=== PATIENT | male | born 1945 | race Caucasian/White ===

== ENCOUNTER → 2018-03-26 | Outpatient (CLI) | payer MEDICARE, OTHER ==
[~2018-03-26] MED LIST: AMOX1TAB15 PO; AMOXICILLIN PO; APIX5TAB PO; ASPI-1197 PO; ATOR10TA69 PO; CLAVULANATE PO; CLOP75TA14 PO; DOXA4TAB3 PO; FENO160T16 PO; LISI40TA4 PO; MAGN500C15 PO; METH8TAB6 PO; METO25TA6 PO; MULTIVITAMIN PO
== END | disposition home or self-care (01) ==
LOC: SHCH 15:52
PROVIDERS: ATTEND Internal Medicine Cardiovascular Disease
DX: I11.9 Hypertensive heart disease without heart failure (principal); I51.7 Cardiomegaly; I70.0 Atherosclerosis of aorta
CPT/HCPCS: 93306

== ENCOUNTER → 2018-03-30 | Outpatient (CLI) | payer MEDICARE, OTHER | END | disposition home or self-care (01) | LOC: RAH 06:33 | PROVIDERS: ATTEND Internal Medicine Cardiovascular Disease | DX: I70.0 Atherosclerosis of aorta (principal); I71.4 Abdominal aortic aneurysm, without rupture | CPT/HCPCS: 76775 ==

== ENCOUNTER 2018-04-03 05:36 | Observation (INO) | payer MEDICARE, OTHER ==
[2018-03-29 15:56] LABS: APPEARANCE,URINE Clear (CLEAR); BILIRUBIN,URINE Negative (NEGATIVE); COLOR,URINE Yellow (YELLOW); GLUCOSE, URINE (UA) Negative (NEGATIVE); KETONES,URINE Negative (NEGATIVE); LEUKOCYTE ESTERASE ,URINE Negative (NEGATIVE); NITRATE,URINE Negative (NEGATIVE); OCCULT BLOOD,URINE Negative (NEGATIVE); PROTEIN,URINE Negative (NEGATIVE)
[2018-03-29 15:57] LABS: BASOPHILS % (AUTO) 1.1 % (0.0-5.0); EOSINOPHILS % (AUTO) 2.8 % (0.0-8.0); HEMATOCRIT 37.3 % (42-54); MEAN CORPUSCULAR HEMOGLOBIN 33.5 pg (27.0-33.0); MEAN CORPUSCULAR VOLUME 98.4 fL (79-99); MONOCYTES % (AUTO) 4.8 % (3.0-13.0); NEUTROPHILS % (AUTO) 70.3 % (40.0-77.0); PLATELET COUNT (AUTO) 206 K/uL (130-400); RED BLOOD CELL COUNT(AUTO) 3.79 MIL/uL (4.50-6.20); RED CELL DISTRIBUTION WIDTH 13.3 % (11.0-15.5)
[2018-03-29 16:05] VITALS: BP 137/53
[2018-03-29 16:06] LABS: CREATININE 1.5 mg/dL (0.5-1.5); POTASSIUM 4.5 mmol/L (3.5-5.1)
[2018-03-29 16:10] LABS: INR 1.05 (0.85-1.15); PARTIAL THROMBOPLASTIN TIME 27.7 SEC (26.3-35.5)
[~2018-04-03] VITALS: Ht 180.3 cm; Wt 91.2 kg
[2018-04-03] VITALS (14 sets, daily range): BP systolic 123–143; BP diastolic 40–68
[~2018-04-03 05:36] MED LIST changes: +ACETAMINOPHEN 325 MG TAB PO PRN; -AMOX1TAB15 PO; -CLOP75TA14 PO; +SODIUM CHLORIDE 0.9% 500ML 500 ML IV SCH
[2018-04-03] MEDS: SODIUM CHLORIDE 0.9% 1000ML 1,000 ML IV SCH ×5 (06:30→22:09)
[2018-04-03] MEDS ORDERED: AMOX1TAB15 PO (07:21)
[2018-04-03] MEDS ORDERED: SODIUM BICARB 50MEQ 50ML VIAL ONE (12:07)
[2018-04-03] MEDS ORDERED: LIDOCAINE HCL 1% 20 ML VIAL ONE (12:07)
[2018-04-03] MEDS ORDERED: ISOVUE-370 50ML VIAL IV ONE ×2 (12:08→12:54)
[2018-04-03] MEDS ORDERED: HEPARIN SODIUM 1000UNIT/ML 10ML VIAL ONE (12:08)
[2018-04-03] MEDS ORDERED: NITROGLYCERIN 5 MG/ML 10 ML VIAL IV ONE (12:08)
[2018-04-03] MEDS ORDERED: IOPAMIDOL-370 100 ML VIAL IV ONE (12:08)
[2018-04-03] MEDS ORDERED: MEPERIDINE-PF 25 MG/ML SYG ONE (12:22)
[2018-04-03] MEDS ORDERED: MIDAZOLAM HCL 1 MG/ML 2ML VIAL ONE (12:22)
[2018-04-03] MEDS ORDERED: CLOPIDOGREL BISULFATE 300 MG TAB ONE (13:18)
[2018-04-03] MEDS ORDERED: NITROGLYCERIN 50 MG/D5% WATER 1 BOT IV PRN (13:30)
[2018-04-03] MEDS ORDERED: METHYLPREDNISOLONE 4 MG TABLET PO PRN (13:30)
[2018-04-03] MEDS ORDERED: ONDANSETRON HCL MDV 20ML 2 MG/ML VIAL IVP PRN (13:30)
[2018-04-03] MEDS ORDERED: ACETAMINOPHEN-CODEINE 300/30MG TAB PO PRN (13:30)
[2018-04-03] MEDS ORDERED: CLOP75TA14 PO (13:33)
[2018-04-03] MEDS ORDERED: FENOFIBRATE NANOCRYSTALLIZED 145 MG TAB PO SCH (21:00)
[2018-04-03] MEDS ORDERED: DOXAZOSIN MESYLATE 2 MG TABLET PO SCH (21:00)
[2018-04-03] MEDS: METOPROLOL TARTRATE 25 MG TAB PO SCH (22:10)
[2018-04-03] MEDS: AMOXICILLIN/POTASSIUM CLAV 500-125 TABLET PO SCH (22:10)
[2018-04-04 03:49] VITALS: BP 139/57
[2018-04-04 05:10] LABS: HEMATOCRIT 35.3 % (42-54); MEAN CORPUSCULAR HEMOGLOBIN 33.8 pg (27.0-33.0); MEAN CORPUSCULAR HGB CONC 34.8 g/dL (32.0-36.0); MEAN CORPUSCULAR VOLUME 97.2 fL (79-99); PLATELET COUNT (AUTO) 207 K/uL (130-400); RED BLOOD CELL COUNT(AUTO) 3.63 MIL/uL (4.50-6.20); RED CELL DISTRIBUTION WIDTH 13.1 % (11.0-15.5); WHITE BLOOD COUNT (AUTO) 10.2 K/uL (4.8-10.8)
[2018-04-04 05:21] LABS: POTASSIUM 4.4 mmol/L (3.5-5.1)
[2018-04-04] MEDS: SODIUM CHLORIDE 0.9% 1000ML 1,000 ML IV SCH ×2 (05:23→05:37)
[2018-04-04 08:00] VITALS: BP 128/60
[2018-04-04] MEDS: AMOXICILLIN/POTASSIUM CLAV 500-125 TABLET PO SCH (08:58)
[2018-04-04] MEDS: METOPROLOL TARTRATE 25 MG TAB PO SCH (08:59)
[2018-04-04] MEDS ORDERED: MULTIVITAMIN TABLET PO SCH (09:00)
[2018-04-04] MEDS ORDERED: ATORVASTATIN CALCIUM 10 MG TABLET PO SCH (09:00)
[2018-04-04] MEDS ORDERED: ASPIRIN 81MG TAB.CHEW PO SCH (09:00)
[2018-04-04] MEDS ORDERED: LISINOPRIL 40 MG TABLET PO SCH (09:00)
[2018-04-04] MEDS ORDERED: CLOPIDOGREL BISULFATE 75 MG TAB PO SCH (09:00)
[2018-04-04] MEDS ORDERED: APIXABAN 5 MG TABLET PO SCH (09:00)
[2018-04-04] MEDS ORDERED: CLOP75TA14 PO (09:54)
[2018-04-04] MEDS ORDERED: MAGNESIUM OXIDE 400 MG TABLET PO SCH (21:00)
== END 2018-04-04 11:30 | disposition home or self-care (01) ==
LOC: DAH 05:36 → 4CH 05:37 → DAH 05:37
PROVIDERS: ADMIT Internal Medicine Cardiovascular Disease; ATTEND Internal Medicine Cardiovascular Disease
DX: I25.119 Atherosclerotic heart disease of native coronary artery with unspecified angina pectoris (principal); I10 Essential (primary) hypertension; E78.5 Hyperlipidemia, unspecified; I48.0 Paroxysmal atrial fibrillation; I49.5 Sick sinus syndrome; M19.90 Unspecified osteoarthritis, unspecified site; F17.210 Nicotine dependence, cigarettes, uncomplicated; Z79.82 Long term (current) use of aspirin; Z79.899 Other long term (current) drug therapy; Z82.49 Family history of ischemic heart disease and other diseases of the circulatory system
CPT/HCPCS: 36415 ×2; 71045; 80048 ×2; 81003; 85025; 85027; 85347 ×2; 85610; 85730; 93005 ×2; 93458; A4606; C1725; C1760; C1769 ×2; C1874 ×2; C1887; C1894; C9600; C9601; G0378 ×30; J1644; J2175; J2250; J3490 ×2; J7030; Q9967 ×3; 92921; 99152; 99153; 99156; 99157

== ENCOUNTER 2018-10-31 06:15 | Observation (INO) | payer MEDICARE, OTHER ==
[~2018-10-31] VITALS: Ht 180.3 cm; Wt 90.3 kg
[~2018-10-31 06:15] MED LIST changes: -ACETAMINOPHEN 325 MG TAB PO PRN; +AMOX1TAB15 PO; -AMOXICILLIN PO; -ASPI-1197 PO; -CLAVULANATE PO; +CLOP75TA14 PO; +DRON400T2 PO; -MULTIVITAMIN PO; -SODIUM CHLORIDE 0.9% 500ML 500 ML IV SCH
[2018-10-31 06:38] LABS: BASOPHILS % (AUTO) 1.3 % (0.0-5.0); HEMATOCRIT 40.3 % (42-54); LYMPHOCYTES % (AUTO) 12.8 % (21.0-51.0); MEAN CORPUSCULAR HEMOGLOBIN 32.6 pg (27.0-33.0); MEAN CORPUSCULAR HGB CONC 33.5 g/dL (32.0-36.0); MEAN CORPUSCULAR VOLUME 97.2 fL (79-99); MONOCYTES % (AUTO) 6.5 % (3.0-13.0); NEUTROPHILS % (AUTO) 77.4 % (40.0-77.0); PLATELET COUNT (AUTO) 181 K/uL (130-400); RED BLOOD CELL COUNT(AUTO) 4.15 MIL/uL (4.50-6.20); RED CELL DISTRIBUTION WIDTH 12.2 % (11.0-15.5); WHITE BLOOD COUNT (AUTO) 8.5 K/uL (4.8-10.8)
[2018-10-31 06:43] LABS: APPEARANCE,URINE CLEAR (CLEAR); BILIRUBIN,URINE NEGATIVE (NEGATIVE); COLOR,URINE YELLOW (YELLOW); GLUCOSE, URINE (UA) NEGATIVE (NEGATIVE); KETONES,URINE 5 mg/dL (NEGATIVE); LEUKOCYTE ESTERASE ,URINE NEGATIVE (NEGATIVE); NITRATE,URINE NEGATIVE (NEGATIVE); OCCULT BLOOD,URINE TRACE-INTACT (NEGATIVE); PH,URINE 5.5 (5.0-8.0); PROTEIN,URINE 30 (NEGATIVE); UROBILINOGEN,URINE 0.2 mg/dL (0.2-1.0)
[2018-10-31 06:45] LABS: CREATININE 1.4 mg/dL (0.5-1.5); POTASSIUM 4.7 mmol/L (3.5-5.1)
[2018-10-31 06:49] LABS: INR 1.03 (0.85-1.15); PROTHROMBIN TIME 10.8 SEC (9.6-11.6)
[2018-10-31 06:57] LABS: ALBUMIN 4.1 g/dL (3.5-5.0); BILIRUBIN,TOTAL 0.5 mg/dL (0.2-1.0)
[2018-10-31] MEDS ORDERED: CLOPIDOGREL BISULFATE 300 MG TAB ONE (07:04)
[2018-10-31 07:25] LABS: BACTERIA,URINE Rare /HPF (None Seen); RBC,URINE 0-1 /HPF (0-1); SQUAMOUS EPITHELIAL CELL,UR Rare /HPF (0-2); WBC,URINE 0-1 /HPF (0-1)
[2018-10-31 10:10] VITALS: BP 170/74
[2018-10-31] MEDS ORDERED: ACETAMINOPHEN 325 MG TAB PO PRN (10:30)
[2018-10-31] MEDS ORDERED: HYDRALAZINE HCL 20 MG/ML VIAL IV PRN (10:30)
[2018-10-31] MEDS ORDERED: MORPHINE SULFATE 2 MG/ML 1ML SYG IV PRN (10:30)
[2018-10-31] MEDS ORDERED: ONDANSETRON HCL 4 MG/2 ML VIAL IV PRN (10:30)
[2018-10-31 13:32] VITALS: BP 149/56
[2018-10-31 14:46] LABS: CREATINE KINASE, TOTAL 58 U/L (21-232); MYOGLOBIN 86 ng/mL (10-92); TROPONIN I < 0.04 ng/mL (0.00-0.06)
[2018-10-31 16:00] VITALS: BP 153/63
[2018-10-31 18:54] LABS: CREATINE KINASE, TOTAL 65 U/L (21-232); MYOGLOBIN 83 ng/mL (10-92); TROPONIN I < 0.04 ng/mL (0.00-0.06)
[2018-10-31 20:00] VITALS: BP 134/56
[2018-10-31] MEDS ORDERED: MAGNESIUM OXIDE 400 MG TABLET PO SCH (21:00)
[2018-10-31] MEDS ORDERED: DOXAZOSIN MESYLATE 2 MG TABLET PO SCH (21:00)
[2018-10-31] MEDS ORDERED: **HM** FENOFIBRATE 160MG PO SCH (21:00)
[2018-10-31] MEDS: FAMOTIDINE/PF 20 MG/2 ML VIAL IV SCH (21:03)
[2018-10-31] MEDS: METOPROLOL TARTRATE 25 MG TAB PO SCH (21:04)
[2018-10-31] MEDS: AMOXICILLIN/POTASSIUM CLAV 500-125 TABLET PO SCH (21:04)
[2018-10-31] MEDS: APIXABAN 5 MG TABLET PO SCH (21:04)
[2018-10-31] MEDS: DRONEDARONE HYDROCHLORIDE 400 MG TABLET PO SCH (21:04)
[2018-10-31 21:25] LABS: CREATINE KINASE, TOTAL 69 U/L (21-232); MYOGLOBIN 86 ng/mL (10-92); TROPONIN I < 0.04 ng/mL (0.00-0.06)
[2018-11-01] VITALS: BP 104/55
[2018-11-01 04:00] VITALS: BP 112/60
[2018-11-01 05:46] LABS: HEMATOCRIT 35.8 % (42-54); MEAN CORPUSCULAR VOLUME 97.2 fL (79-99); PLATELET COUNT (AUTO) 208 K/uL (130-400); RED BLOOD CELL COUNT(AUTO) 3.68 MIL/uL (4.50-6.20); RED CELL DISTRIBUTION WIDTH 12.6 % (11.0-15.5)
[2018-11-01 06:00] LABS: CREATININE 1.5 mg/dL (0.5-1.5); POTASSIUM 4.8 mmol/L (3.5-5.1)
[2018-11-01 08:00] VITALS: BP 125/61
[2018-11-01] MEDS: FAMOTIDINE/PF 20 MG/2 ML VIAL IV SCH (09:00)
[2018-11-01] MEDS: DRONEDARONE HYDROCHLORIDE 400 MG TABLET PO SCH (09:00)
[2018-11-01] MEDS ORDERED: ATORVASTATIN CALCIUM 10 MG TABLET PO SCH (09:00)
[2018-11-01] MEDS ORDERED: CLOPIDOGREL BISULFATE 75 MG TAB PO SCH (09:00)
[2018-11-01] MEDS ORDERED: LISINOPRIL 40 MG TABLET PO SCH (09:00)
[2018-11-01] MEDS: METOPROLOL TARTRATE 25 MG TAB PO SCH (09:00)
[2018-11-01] MEDS: APIXABAN 5 MG TABLET PO SCH (09:00)
[2018-11-01] MEDS: AMOXICILLIN/POTASSIUM CLAV 500-125 TABLET PO SCH (09:00)
[2018-11-01 09:37] LABS: CREATINE KINASE, TOTAL 79 U/L (21-232); MYOGLOBIN 103 ng/mL (10-92); TROPONIN I < 0.04 ng/mL (0.00-0.06)
[2018-11-01] MEDS ORDERED: REGADENOSON 0.4 MG/5 ML PF SYG IVP SCH (11:15)
== END 2018-11-01 19:15 | disposition home or self-care (01) ==
LOC: EEVIPCON 06:15 → EDH 06:15 → EDHIP 08:15 → 3DH 09:21
PROVIDERS: ADMIT Hospitalist; ATTEND Hospitalist
DX: R07.89 Other chest pain (principal); I25.10 Atherosclerotic heart disease of native coronary artery without angina pectoris; I10 Essential (primary) hypertension; I48.0 Paroxysmal atrial fibrillation; I71.4 Abdominal aortic aneurysm, without rupture; E11.9 Type 2 diabetes mellitus without complications; E78.5 Hyperlipidemia, unspecified; J44.9 Chronic obstructive pulmonary disease, unspecified; N40.0 Benign prostatic hyperplasia without lower urinary tract symptoms; Z72.0 Tobacco use; Z79.01 Long term (current) use of anticoagulants; Z80.9 Family history of malignant neoplasm, unspecified; Z82.49 Family history of ischemic heart disease and other diseases of the circulatory system; Z86.79 Personal history of other diseases of the circulatory system; Z95.5 Presence of coronary angioplasty implant and graft
CPT/HCPCS: 36415; 71045; 76775; 78452; 80048; 80053; 81001; 82550; 83874; 84484; 85025; 85027; 85610; 85730; 93005; 93017; 96374; 96375; A9500; G0378; J0360; J2785; J3490

== ENCOUNTER → 2019-01-03 | Outpatient (CLI) | payer MEDICARE, OTHER | END | disposition home or self-care (01) | LOC: SLP 20:10 | PROVIDERS: ATTEND Internal Medicine Cardiovascular Disease | DX: G47.30 Sleep apnea, unspecified (principal) | CPT/HCPCS: 95810 ==

== ENCOUNTER → 2019-01-07 | Outpatient (CLI) | payer MEDICARE, OTHER | END | disposition home or self-care (01) | LOC: SLP 20:12 | PROVIDERS: ATTEND Internal Medicine Cardiovascular Disease | DX: G47.30 Sleep apnea, unspecified (principal) | CPT/HCPCS: 95811 ==

== ENCOUNTER 2019-01-09 09:57 | Emergency (ER) | payer MEDICARE ==
[2019-01-09 10:22] LABS: APPEARANCE,URINE CLEAR (CLEAR); BILIRUBIN,URINE Negative (NEGATIVE); COLOR,URINE Yellow (YELLOW); GLUCOSE, URINE (UA) Negative (NEGATIVE); KETONES,URINE Negative (NEGATIVE); LEUKOCYTE ESTERASE ,URINE Negative (NEGATIVE); NITRATE,URINE Negative (NEGATIVE); OCCULT BLOOD,URINE Negative (NEGATIVE); PROTEIN,URINE Negative (NEGATIVE)
[2019-01-09 10:31] LABS: BASOPHILS % (AUTO) 1.1 % (0.0-5.0); EOSINOPHILS % (AUTO) 1.4 % (0.0-8.0); HEMATOCRIT 36.5 % (42-54); LYMPHOCYTES % (AUTO) 15.1 % (21.0-51.0); MEAN CORPUSCULAR HEMOGLOBIN 33.5 pg (27.0-33.0); MEAN CORPUSCULAR HGB CONC 34.1 g/dL (32.0-36.0); MEAN CORPUSCULAR VOLUME 98.4 fL (79-99); MONOCYTES % (AUTO) 6.7 % (3.0-13.0); NEUTROPHILS % (AUTO) 75.7 % (40.0-77.0); NUCLEATED RED BLOOD CELLS 0.1 % (0.0-0.19); PLATELET COUNT (AUTO) 298 K/uL (130-400); RED BLOOD CELL COUNT(AUTO) 3.71 MIL/uL (4.50-6.20); RED CELL DISTRIBUTION WIDTH 13.5 % (11.0-15.5); WHITE BLOOD COUNT (AUTO) 6.3 K/uL (4.8-10.8)
[2019-01-09 10:42] LABS: INR 1.02 (0.85-1.15); PARTIAL THROMBOPLASTIN TIME 28.3 SEC (26.3-35.5); PROTHROMBIN TIME 10.7 SEC (9.6-11.6)
[2019-01-09 10:47] LABS: CARBON DIOXIDE 23 mmol/L (21-32); CHLORIDE 102 mmol/L (101-111); CREATININE 1.9 mg/dL (0.5-1.5); GLOMERULAR FILTR. RATE CALC 37 mL/min (>60); GLUCOSE,RANDOM 108 mg/dL (70-105); SODIUM SERUM 136 mmol/L (136-145); UREA NITROGEN, BLOOD 34 mg/dL (7-18)
[2019-01-09 10:59] LABS: ALANINE AMINOTRANSFERASE 22 U/L (12-78); ASPARTATE AMINOTRANSFERASE 19 U/L (10-37); BILIRUBIN,TOTAL 0.3 mg/dL (0.2-1.0); CREATINE KINASE, TOTAL 73 U/L (21-232); MYOGLOBIN 88 ng/mL (10-92); TOTAL PROTEIN, SERUM 7.4 g/dL (6.0-8.3); TROPONIN I < 0.04 ng/mL (0.00-0.06)
[2019-01-09] MEDS ORDERED: SODIUM CHLORIDE 0.9% 1000ML 1,000 ML IV ONE (11:09)
[2019-01-09] MEDS ORDERED: KETOROLAC TROMETHAMINE 30MG/ML ONE (11:09)
[2019-01-09] MEDS ORDERED: ONDANSETRON HCL 4 MG/2 ML VIAL ONE (11:09)
== END 2019-01-09 13:33 | disposition home or self-care (01) ==
LOC: EDH 09:57
DX: E86.0 Dehydration (principal); B34.9 Viral infection, unspecified; I10 Essential (primary) hypertension; I25.10 Atherosclerotic heart disease of native coronary artery without angina pectoris; I48.91 Unspecified atrial fibrillation; E78.00 Pure hypercholesterolemia, unspecified; Z85.46 Personal history of malignant neoplasm of prostate; Z90.49 Acquired absence of other specified parts of digestive tract; Z98.890 Other specified postprocedural states; Z87.891 Personal history of nicotine dependence
CPT/HCPCS: 36415; 71045; 80053; 81003; 82550; 83605; 83874; 84484; 85025; 85610; 85730; 87040 ×2; 87804 ×2; 93005; 96361; 96374; 96375; 99284; J1885; J2405; J7030

== ENCOUNTER → 2019-03-12 | Outpatient (CLI) | payer MEDICARE, OTHER | END | disposition home or self-care (01) | LOC: SHCH 07:47 | PROVIDERS: ATTEND Internal Medicine Cardiovascular Disease | DX: I71.4 Abdominal aortic aneurysm, without rupture (principal) | CPT/HCPCS: 93978 ==

== ENCOUNTER 2019-04-11 10:28 | Emergency (ER) | payer MEDICARE, OTHER ==
[2019-04-11 11:08] LABS: EOSINOPHILS % (AUTO) 1.1 % (0.0-8.0); HEMATOCRIT 38.6 % (42-54); LYMPHOCYTES % (AUTO) 11.4 % (21.0-51.0); MEAN CORPUSCULAR HEMOGLOBIN 33.8 pg (27.0-33.0); MEAN CORPUSCULAR HGB CONC 33.7 g/dL (32.0-36.0); MEAN CORPUSCULAR VOLUME 100.1 fL (79-99); MONOCYTES % (AUTO) 6.7 % (3.0-13.0); NEUTROPHILS % (AUTO) 79.8 % (40.0-77.0); PLATELET COUNT (AUTO) 256 K/uL (130-400); RED BLOOD CELL COUNT(AUTO) 3.86 MIL/uL (4.50-6.20); RED CELL DISTRIBUTION WIDTH 13.3 % (11.0-15.5); WHITE BLOOD COUNT (AUTO) 14.2 K/uL (4.8-10.8)
[2019-04-11 11:17] LABS: CREATININE 1.6 mg/dL (0.5-1.5); POTASSIUM 4.4 mmol/L (3.5-5.1)
[2019-04-11] MEDS ORDERED: MORPHINE SULFATE 2 MG/ML 1ML SYG ONE (11:19)
[2019-04-11] MEDS ORDERED: DEXAMETHASONE SOD PHOSPHATE 10MG/ML 1ML VIAL ONE (11:19)
[2019-04-11 11:21] LABS: CRP QUANTITATIVE 5.7 mg/L (0.00-9.0); URIC ACID 6.2 mg/dL (2.6-7.2)
[2019-04-11 11:22] LABS: ALBUMIN 3.9 g/dL (3.5-5.0); BILIRUBIN,TOTAL 0.3 mg/dL (0.2-1.0)
[2019-04-11] MEDS ORDERED: LIDOCAINE HCL 2% 20ML ONE (12:03)
[2019-04-11 12:08] LABS: ERYTHROCYTE SEDIMENTATION RATE 14 MM/HR (0-20)
[2019-04-11 15:40] LABS: APPEARANCE BODY FLUID CLOUDY (CLEAR); SPECIMENTYPE,BODY FLUID SYNOVIAL
[2019-04-11 15:41] LABS: BODY FLUID WBC 4847 /cu. mm.; COLOR,BODY FLUID ORANGE (LT YELLOW); TOTAL VOLUME,BODY FLUID 26 mL
[2019-04-11 15:42] LABS: BODY FLUID RBC 11056 /cu. mm.
[2019-04-11 16:36] LABS: BF LYMPHOCYTE 1 %
[2019-04-11 16:55] LABS: CRYSTALS, SYNOVIAL FLUID SEE SEPARATE REPORT
== END 2019-04-11 17:42 | disposition home or self-care (01) ==
LOC: EDH 10:28
DX: M25.462 Effusion, left knee (principal); I48.91 Unspecified atrial fibrillation; E78.00 Pure hypercholesterolemia, unspecified; I10 Essential (primary) hypertension; Z88.2 Allergy status to sulfonamides; Z90.49 Acquired absence of other specified parts of digestive tract; Z87.891 Personal history of nicotine dependence; Z79.01 Long term (current) use of anticoagulants; Z79.899 Other long term (current) drug therapy
CPT/HCPCS: 20610; 36415; 73562; 80053; 84550; 85025; 85651; 86140; 87071; 87205; 89051; 89060; 96374; 96375; 99285; J1100; J3490

== ENCOUNTER 2019-04-13 08:19 | Emergency (ER) | payer MEDICARE, OTHER ==
[2019-04-13] MEDS ORDERED: MORPHINE SULFATE 5 MG/ML VIAL ONE (08:49)
[2019-04-13] MEDS ORDERED: ACETAMINOPHEN 325 MG TAB ONE (08:49)
[2019-04-13] MEDS ORDERED: PREDNISONE 20 MG TABLET ONE (08:59)
[2019-04-13] MEDS ORDERED: LIDOCAINE HCL 1% 20 ML VIAL ONE (09:23)
[2019-04-13] MEDS ORDERED: L.E.T. GEL 4%/0.5%/0.18% 3ML 3 ML/SYR SYG TP ONE (09:23)
== END 2019-04-13 11:47 | disposition home or self-care (01) ==
LOC: EDH 08:19
DX: M25.462 Effusion, left knee (principal); M10.9 Gout, unspecified; E78.00 Pure hypercholesterolemia, unspecified; I10 Essential (primary) hypertension; I48.91 Unspecified atrial fibrillation; Z88.2 Allergy status to sulfonamides; Z90.49 Acquired absence of other specified parts of digestive tract; Z85.46 Personal history of malignant neoplasm of prostate; Z98.890 Other specified postprocedural states
CPT/HCPCS: 20610; 73562; 96372; 99284; J2270

== ENCOUNTER 2019-04-29 10:38 | Emergency (ER) | payer MEDICARE ==
[2019-04-29] MEDS ORDERED: METHYLPREDNISOLONE SOD SUCC 125MG/2ML VIAL ONE (11:08)
[2019-04-29] MEDS ORDERED: ACETAMINOPHEN EXTRA STRENGTH 500 MG TABLET ONE (11:08)
== END 2019-04-29 12:57 | disposition home or self-care (01) ==
LOC: EDH 10:38
DX: M10.061 Idiopathic gout, right knee (principal); M10.071 Idiopathic gout, right ankle and foot; I25.10 Atherosclerotic heart disease of native coronary artery without angina pectoris; I10 Essential (primary) hypertension; E78.5 Hyperlipidemia, unspecified; I48.91 Unspecified atrial fibrillation; Z72.0 Tobacco use
CPT/HCPCS: 96372; 99283; J2930

== ENCOUNTER → 2019-07-08 | Outpatient (CLI) | payer MEDICARE | END | disposition home or self-care (01) | LOC: LAB 13:29 | PROVIDERS: ATTEND Internal Medicine Gastroenterology | DX: R19.7 Diarrhea, unspecified (principal) | CPT/HCPCS: 87507 ==

== ENCOUNTER 2019-09-16 09:19 | Emergency (ER) | payer MEDICARE, OTHER ==
[2019-09-16 09:58] LABS: BASOPHILS % (AUTO) 0.9 % (0.0-5.0); EOSINOPHILS % (AUTO) 1.1 % (0.0-8.0); HEMATOCRIT 41.1 % (42-54); LYMPHOCYTES % (AUTO) 12.1 % (21.0-51.0); MEAN CORPUSCULAR HEMOGLOBIN 34.5 pg (27.0-33.0); MEAN CORPUSCULAR VOLUME 101.4 fL (79-99); MONOCYTES % (AUTO) 5.5 % (3.0-13.0); NEUTROPHILS % (AUTO) 80.4 % (40.0-77.0); PLATELET COUNT (AUTO) 203 K/uL (130-400); RED BLOOD CELL COUNT(AUTO) 4.05 MIL/uL (4.50-6.20); RED CELL DISTRIBUTION WIDTH 13.6 % (11.0-15.5); WHITE BLOOD COUNT (AUTO) 10.2 K/uL (4.8-10.8)
[2019-09-16 10:02] LABS: APPEARANCE,URINE Clear (CLEAR); BILIRUBIN,URINE Negative (NEGATIVE); COLOR,URINE Yellow (YELLOW); GLUCOSE, URINE (UA) Negative (NEGATIVE); KETONES,URINE Negative (NEGATIVE); LEUKOCYTE ESTERASE ,URINE Negative (NEGATIVE); NITRATE,URINE Negative (NEGATIVE); OCCULT BLOOD,URINE Negative (NEGATIVE); PROTEIN,URINE Negative (NEGATIVE); UROBILINOGEN,URINE 0.2 mg/dL (0.2-1.0)
[2019-09-16 10:06] LABS: CREATININE 1.3 mg/dL (0.5-1.5); POTASSIUM 4.6 mmol/L (3.5-5.1)
[2019-09-16 10:12] LABS: BILIRUBIN,TOTAL 0.3 mg/dL (0.2-1.0); TOTAL PROTEIN, SERUM 7.5 g/dL (6.0-8.3)
[2019-09-16 10:18] LABS: INR 1.02 (0.85-1.15); PARTIAL THROMBOPLASTIN TIME 28.2 SEC (26.3-35.5); PROTHROMBIN TIME 10.7 SEC (9.6-11.6)
== END 2019-09-16 11:24 | disposition home or self-care (01) ==
LOC: EDH 09:19
DX: S39.011A Strain of muscle, fascia and tendon of abdomen, initial encounter (principal); R31.9 Hematuria, unspecified; I48.91 Unspecified atrial fibrillation; I25.10 Atherosclerotic heart disease of native coronary artery without angina pectoris; E78.00 Pure hypercholesterolemia, unspecified; I10 Essential (primary) hypertension; Z72.0 Tobacco use; Z88.2 Allergy status to sulfonamides; Z85.46 Personal history of malignant neoplasm of prostate; X58.XXXA Exposure to other specified factors, initial encounter; Y93.89 Activity, other specified; Y92.89 Other specified places as the place of occurrence of the external cause; Y99.8 Other external cause status
CPT/HCPCS: 36415; 74176; 80053; 81003; 85025; 85610; 85730; 87088

== ENCOUNTER → 2020-04-30 | Outpatient (CLI) | payer MEDICARE | END | disposition home or self-care (01) | LOC: SHCH 09:11 | PROVIDERS: ATTEND Internal Medicine Cardiovascular Disease | DX: I71.4 Abdominal aortic aneurysm, without rupture (principal); R09.89 Other specified symptoms and signs involving the circulatory and respiratory systems; I25.10 Atherosclerotic heart disease of native coronary artery without angina pectoris; I10 Essential (primary) hypertension | CPT/HCPCS: 93306; 93356; 93880; 93978 ==

== ENCOUNTER → 2020-05-28 | Outpatient (CLI) | payer MEDICARE ==
[~2020-05-28] MED LIST changes: +IOHEXOL 350 MG/ML 100ML INFUS..BTL IV ONE
== END ==
LOC: RAH 08:56
PROVIDERS: ATTEND Urology
DX: I25.10 Atherosclerotic heart disease of native coronary artery without angina pectoris (principal); R31.0 Gross hematuria; K57.30 Diverticulosis of large intestine without perforation or abscess without bleeding
CPT/HCPCS: 74178; Q9967

== ENCOUNTER 2021-01-17 09:12 | Emergency (ER) | payer MEDICARE ==
[~2021-01-17 09:12] MED LIST changes: -IOHEXOL 350 MG/ML 100ML INFUS..BTL IV ONE; -LISI40TA4 PO; +LISI40TA9 PO
[2021-01-17 10:13] LABS: BASOPHILS % (AUTO) 0.6 % (0.0-5.0); HEMATOCRIT 36.8 % (42-54); LYMPHOCYTES % (AUTO) 10.9 % (21.0-51.0); MEAN CORPUSCULAR HEMOGLOBIN 33.4 pg (27.0-33.0); MEAN CORPUSCULAR HGB CONC 33.2 g/dL (32.0-36.0); MEAN CORPUSCULAR VOLUME 100.8 fL (79-99); MONOCYTES % (AUTO) 5.8 % (3.0-13.0); NEUTROPHILS % (AUTO) 81.2 % (40.0-77.0); PLATELET COUNT (AUTO) 242 K/uL (130-400); RED BLOOD CELL COUNT(AUTO) 3.65 MIL/uL (4.50-6.20); RED CELL DISTRIBUTION WIDTH 12.9 % (11.0-15.5); WHITE BLOOD COUNT (AUTO) 11.1 K/uL (4.8-10.8)
[2021-01-17] MEDS ORDERED: IOHEXOL 350 MG/ML 100ML INFUS..BTL IV ONE (10:15)
[2021-01-17] MEDS ORDERED: KETOROLAC TROMETHAMINE 30MG/ML ONE (10:16)
[2021-01-17] MEDS ORDERED: LORAZEPAM 2 MG/ML 1 ML VIAL ONE (10:16)
[2021-01-17] MEDS ORDERED: DEXAMETHASONE SOD PHOSPHATE 10MG/ML 1ML VIAL ONE (10:16)
[2021-01-17] MEDS ORDERED: HYDROMORPHONE 1 MG/1 ML AMP ONE (10:17)
[2021-01-17 10:30] LABS: APPEARANCE,URINE Clear (CLEAR); BILIRUBIN,URINE Negative (NEGATIVE); COLOR,URINE Yellow (YELLOW); GLUCOSE, URINE (UA) Negative (NEGATIVE); KETONES,URINE Negative (NEGATIVE); LEUKOCYTE ESTERASE ,URINE Negative (NEGATIVE); NITRATE,URINE Negative (NEGATIVE); OCCULT BLOOD,URINE Negative (NEGATIVE); PROTEIN,URINE Negative (NEGATIVE)
[2021-01-17 10:33] LABS: ALBUMIN 3.6 g/dL (3.5-5.0); BILIRUBIN,TOTAL 0.4 mg/dL (0.2-1.0); CREATININE 1.4 mg/dL (0.5-1.5); POTASSIUM 4.5 mmol/L (3.5-5.1)
== END 2021-01-17 15:28 | disposition home or self-care (01) ==
LOC: EDH 09:12
DX: S39.012A Strain of muscle, fascia and tendon of lower back, initial encounter (principal); K40.90 Unilateral inguinal hernia, without obstruction or gangrene, not specified as recurrent; S39.011A Strain of muscle, fascia and tendon of abdomen, initial encounter; S39.013A Strain of muscle, fascia and tendon of pelvis, initial encounter; I48.91 Unspecified atrial fibrillation; I20.0 Unstable angina; E78.00 Pure hypercholesterolemia, unspecified; I10 Essential (primary) hypertension; Z72.0 Tobacco use; Z88.2 Allergy status to sulfonamides; X58.XXXA Exposure to other specified factors, initial encounter; Y93.89 Activity, other specified; Y92.89 Other specified places as the place of occurrence of the external cause; Y99.8 Other external cause status
CPT/HCPCS: 36415; 74177; 80053; 81003; 85025; 96372; 96374; 96375; 99285; J1100; J1170; J1885; J2060; Q9967

== ENCOUNTER → 2021-06-29 | Outpatient (CLI) | payer MEDICARE ==
[~2021-06-29] MED LIST changes: -DRON400T2 PO; +DRON400T7 PO
== END | disposition home or self-care (01) ==
LOC: SHCH 07:38
PROVIDERS: ATTEND Internal Medicine Cardiovascular Disease
DX: I71.4 Abdominal aortic aneurysm, without rupture (principal); I65.23 Occlusion and stenosis of bilateral carotid arteries; R09.89 Other specified symptoms and signs involving the circulatory and respiratory systems
CPT/HCPCS: 93880; 93978

== ENCOUNTER → 2023-06-27 | Outpatient (CLI) | payer OTHER, MEDICARE ==
[~2023-06-27] MED LIST changes: +CLOP-31 PO; -CLOP75TA14 PO; -MAGN500C15 PO; +MAGN500C4 PO
== END | disposition home or self-care (01) ==
LOC: SHCH 07:35
PROVIDERS: ATTEND Internal Medicine Cardiovascular Disease
DX: I71.40 Abdominal aortic aneurysm, without rupture, unspecified (principal); I10 Essential (primary) hypertension
CPT/HCPCS: 93978

== ENCOUNTER → 2023-08-08 | Outpatient (CLI) | payer OTHER, MEDICARE | END | disposition home or self-care (01) | LOC: SHCH 08:19 | PROVIDERS: ATTEND Internal Medicine Cardiovascular Disease | DX: I35.0 Nonrheumatic aortic (valve) stenosis (principal); I25.10 Atherosclerotic heart disease of native coronary artery without angina pectoris; I11.9 Hypertensive heart disease without heart failure; E78.5 Hyperlipidemia, unspecified | CPT/HCPCS: 93306 ==

== ENCOUNTER → 2023-11-21 | Outpatient (CLI) | payer OTHER, MEDICARE ==
[~2023-11-21] MED LIST changes: +ALLO100T PO; +AMIO200T68 PO; -AMOX1TAB15 PO; -ATOR10TA69 PO; -DRON400T7 PO; +FOLI0.8T22 PO; +LISI10TA24 PO; -LISI40TA9 PO; -MAGN500C4 PO; -METH8TAB6 PO; +METO-408 PO; -METO25TA6 PO; +MIRA25TA PO; +NITR0.4T50 SL; +REGADENOSON 0.4 MG/5 ML PF SYG IVP ONE; +ROSU10TA28 PO; +TAMS-1 PO
== END | disposition home or self-care (01) ==
LOC: SHCH 08:23
PROVIDERS: ATTEND Internal Medicine Cardiovascular Disease
DX: I10 Essential (primary) hypertension (principal); I48.0 Paroxysmal atrial fibrillation; I48.92 Unspecified atrial flutter
CPT/HCPCS: 78452; 96374; 93017; J2785; A9500 ×2

== ENCOUNTER 2023-11-29 05:33 | Day surgery (SDC) | payer OTHER, MEDICARE ==
[2023-11-27 11:36] VITALS: BP 113/50; PULSE 65; RESP 18
[2023-11-27 11:45] LABS: BASOPHILS # (AUTO) 0.06 K/uL (0.00-0.20); BASOPHILS % (AUTO) 0.6 % (0.0-5.0); EOSINOPHILS # (AUTO) 0.16 K/uL (0.00-0.70); EOSINOPHILS % (AUTO) 1.7 % (0.0-8.0); HEMATOCRIT 37.7 % (42-54); IMMATURE GRANULOCYTE ABSOLUTE 0.05 K/uL (0-1); LYMPHOCYTES # (AUTO) 1.4 K/uL (1.0-4.8); MEAN CORPUSCULAR HEMOGLOBIN 33.3 pg (27.0-33.0); MEAN CORPUSCULAR HGB CONC 32.4 g/dL (32.0-36.0); MONOCYTES # (AUTO) 0.8 K/uL (0.1-1.0); MONOCYTES % (AUTO) 8.6 % (3.0-13.0); NEUTROPHILS % (AUTO) 73.6 % (40.0-77.0); PLATELET COUNT (AUTO) 233 K/uL (130-400); RED BLOOD CELL COUNT(AUTO) 3.66 MIL/uL (4.50-6.20); RED CELL DISTRIBUTION WIDTH 14.2 % (11.0-15.5); WHITE BLOOD COUNT (AUTO) 9.5 K/uL (4.8-10.8)
[2023-11-27 11:55] LABS: PROTHROMBIN TIME 11.6 SEC (9.6-11.6)
[2023-11-27 11:56] LABS: PARTIAL THROMBOPLASTIN TIME 30.6 SEC (26.3-35.5)
[2023-11-27 11:57] LABS: POTASSIUM 5.5 mmol/L (3.5-5.1)
[2023-11-29] VITALS (9 sets, daily range): BP systolic 103–120; BP diastolic 40–55; PULSE 54–65; RESP 14–16
[~2023-11-29] VITALS: Ht 177.8 cm; Wt 84.1 kg
[~2023-11-29 05:33] MED LIST changes: +ACET-3540 PO; -CLOP-31 PO; +CLOP75TA32 PO; -DOXA4TAB3 PO; +GABA-529 PO; -REGADENOSON 0.4 MG/5 ML PF SYG IVP ONE; +SULF1TAB42 PO; -TAMS-1 PO
[2023-11-29] MEDS ORDERED: 0.9%NACL 1000ML 1,000 ML IV ONE (06:21)
[2023-11-29 07:05] LABS: CREATININE 2.1 mg/dL (0.5-1.5); POTASSIUM 5.2 mmol/L (3.5-5.1)
[2023-11-29] MEDS ORDERED: LIDOCAINE HCL 400MG/20ML VIAL ONE (07:47)
[2023-11-29] MEDS ORDERED: MEPERIDINE-PF 25 MG/ML SYG ONE ×2 (07:48→08:10)
[2023-11-29] MEDS ORDERED: MIDAZOLAM HCL 1 MG/ML 2ML VIAL ONE ×2 (07:48→08:11)
[2023-11-29] MEDS ORDERED: HEPARIN 10,000 UNIT/10ML (1,000 UNIT/ML) VIAL ONE (07:49)
== END 2023-11-29 12:40 | disposition home or self-care (01) ==
LOC: DAH 05:33
PROVIDERS: ATTEND Internal Medicine Cardiovascular Disease
DX: I48.3 Typical atrial flutter (principal); I48.0 Paroxysmal atrial fibrillation; I49.1 Atrial premature depolarization; E11.22 Type 2 diabetes mellitus with diabetic chronic kidney disease; I12.9 Hypertensive chronic kidney disease with stage 1 through stage 4 chronic kidney disease, or unspecified chronic kidney disease; N18.30 Chronic kidney disease, stage 3 unspecified; E78.5 Hyperlipidemia, unspecified; I25.2 Old myocardial infarction; J45.909 Unspecified asthma, uncomplicated; M19.90 Unspecified osteoarthritis, unspecified site; M10.9 Gout, unspecified; F17.200 Nicotine dependence, unspecified, uncomplicated; G47.33 Obstructive sleep apnea (adult) (pediatric); Z79.01 Long term (current) use of anticoagulants; Z79.899 Other long term (current) drug therapy; Z98.84 Bariatric surgery status; Z95.5 Presence of coronary angioplasty implant and graft; Z90.49 Acquired absence of other specified parts of digestive tract; Z98.890 Other specified postprocedural states; Z82.49 Family history of ischemic heart disease and other diseases of the circulatory system; Z80.9 Family history of malignant neoplasm, unspecified
CPT/HCPCS: 80048 ×2; 85025; 85610; 85730; 36415 ×2; 93005 ×2; 93653; C1894 ×2; A4649 ×2; C1732; C1730; J3490; J7030; J1644 ×2; J2250 ×2; J2175 ×2; A4215; A4222; A4221; A4663; A4606; A4223 ×3; A4216; 99156; 99157

== ENCOUNTER 2024-02-08 09:20 | Emergency (ER) | payer OTHER, MEDICARE ==
[~2024-02-08] VITALS: Ht 177.8 cm; Wt 82.6 kg
[~2024-02-08 09:20] MED LIST changes: -AMIO200T68 PO
[2024-02-08] MEDS: 0.9%NACL 1000ML 1,000 ML IV ONE (10:04)
[2024-02-08 10:22] LABS: BASOPHILS # (AUTO) 0.08 K/uL (0.00-0.20); BASOPHILS % (AUTO) 0.8 % (0.0-5.0); EOSINOPHILS # (AUTO) 0.12 K/uL (0.00-0.70); EOSINOPHILS % (AUTO) 1.2 % (0.0-8.0); HEMATOCRIT 35.1 % (42-54); IMMATURE GRANULOCYTE ABSOLUTE 0.05 K/uL (0-1); LYMPHOCYTES # (AUTO) 1.2 K/uL (1.0-4.8); LYMPHOCYTES % (AUTO) 11.4 % (21.0-51.0); MEAN CORPUSCULAR HEMOGLOBIN 33.2 pg (27.0-33.0); MEAN CORPUSCULAR HGB CONC 32.8 g/dL (32.0-36.0); MEAN CORPUSCULAR VOLUME 101.4 fL (79-99); MONOCYTES # (AUTO) 0.5 K/uL (0.1-1.0); MONOCYTES % (AUTO) 4.9 % (3.0-13.0); NEUTROPHILS # (AUTO) 8.3 K/uL (1.8-7.7); NEUTROPHILS % (AUTO) 81.2 % (40.0-77.0); PLATELET COUNT (AUTO) 215 K/uL (130-400); RED BLOOD CELL COUNT(AUTO) 3.46 MIL/uL (4.50-6.20); RED CELL DISTRIBUTION WIDTH 13.7 % (11.0-15.5); WHITE BLOOD COUNT (AUTO) 10.2 K/uL (4.8-10.8)
[2024-02-08] MEDS: MECLIZINE HCL 25 MG TABLET PO ONE (10:24)
[2024-02-08] MEDS: ONDANSETRON 4MG INJ IVP ONE (10:24)
[2024-02-08 10:27] LABS: CREATININE 1.4 mg/dL (0.5-1.3); POTASSIUM 4.5 mmol/L (3.5-5.1)
[2024-02-08 10:32] LABS: ALBUMIN 3.4 g/dL (3.5-5.0); BILIRUBIN,TOTAL 0.3 mg/dL (0.2-1.0); TOTAL PROTEIN, SERUM 7.4 g/dL (6.0-8.3)
[2024-02-08 10:37] LABS: APPEARANCE,URINE CLEAR (CLEAR); BILIRUBIN,URINE NEGATIVE (NEGATIVE); COLOR,URINE LIGHT-YELLOW (YELLOW); GLUCOSE, URINE (UA) NEGATIVE (NEGATIVE); KETONES,URINE NEGATIVE (NEGATIVE); LEUKOCYTE ESTERASE ,URINE NEGATIVE Leu/uL (NEGATIVE); NITRATE,URINE NEGATIVE (NEGATIVE); OCCULT BLOOD,URINE NEGATIVE (NEGATIVE); PH,URINE 5.5 (5.0-8.0); PROTEIN,URINE NEGATIVE (NEGATIVE); UROBILINOGEN,URINE 0.2 mg/dL (0.2-1.0)
[2024-02-08 10:41] LABS: ADD UA MICROSCOPIC NO
[2024-02-08 11:48] VITALS: BP 160/61; PULSE 65; RESP 18; O2SAT 96
[2024-02-08] MEDS ORDERED: MECL-226 PO (12:08)
== END 2024-02-08 12:56 | disposition home or self-care (01) ==
LOC: EDH 09:20
DX: R42 Dizziness and giddiness (principal); I10 Essential (primary) hypertension; E78.00 Pure hypercholesterolemia, unspecified; I48.91 Unspecified atrial fibrillation; M19.90 Unspecified osteoarthritis, unspecified site; F17.200 Nicotine dependence, unspecified, uncomplicated; Z79.01 Long term (current) use of anticoagulants; Z79.02 Long term (current) use of antithrombotics/antiplatelets; Z79.899 Other long term (current) drug therapy; Z90.49 Acquired absence of other specified parts of digestive tract; Z95.5 Presence of coronary angioplasty implant and graft
CPT/HCPCS: 99284; 96374; 92522; 70450; 92610; 71045; 96361; 80053; 85025; 82948; 81003; 36415; 93005; J7030; J2405

== ENCOUNTER → 2024-04-23 | Outpatient (CLI) | payer OTHER ==
[~2024-04-23] MED LIST changes: +MECL-226 PO; -ROSU10TA28 PO; +ROSU10TA72 PO
== END | disposition home or self-care (01) ==
LOC: RAH 11:23
PROVIDERS: ATTEND Chiropractor
DX: I35.8 Other nonrheumatic aortic valve disorders (principal); I51.89 Other ill-defined heart diseases; I51.7 Cardiomegaly; I25.10 Atherosclerotic heart disease of native coronary artery without angina pectoris
CPT/HCPCS: 93306

== ENCOUNTER → 2024-08-27 | Outpatient (CLI) | payer OTHER, MEDICARE | END | disposition home or self-care (01) | LOC: SHCH 07:37 | PROVIDERS: ATTEND Internal Medicine Cardiovascular Disease | DX: I65.23 Occlusion and stenosis of bilateral carotid arteries (principal); I71.40 Abdominal aortic aneurysm, without rupture, unspecified | CPT/HCPCS: 93880; 93978 ==

== ENCOUNTER 2024-10-01 08:27 | Day surgery (SDC) | payer OTHER, MEDICARE ==
[2024-09-27 11:15] LABS: BASOPHILS # (AUTO) 0.08 K/uL (0.00-0.20); BASOPHILS % (AUTO) 0.8 % (0.0-5.0); EOSINOPHILS # (AUTO) 0.16 K/uL (0.00-0.70); EOSINOPHILS % (AUTO) 1.5 % (0.0-8.0); HEMATOCRIT 38.7 % (42-54); IMMATURE GRANULOCYTE ABSOLUTE 0.07 K/uL (0-1); LYMPHOCYTES # (AUTO) 1.3 K/uL (1.0-4.8); LYMPHOCYTES % (AUTO) 12.4 % (21.0-51.0); MEAN CORPUSCULAR HEMOGLOBIN 34.6 pg (27.0-33.0); MEAN CORPUSCULAR HGB CONC 32.6 g/dL (32.0-36.0); MEAN CORPUSCULAR VOLUME 106.3 fL (79-99); MONOCYTES # (AUTO) 0.8 K/uL (0.1-1.0); MONOCYTES % (AUTO) 7.6 % (3.0-13.0); PLATELET COUNT (AUTO) 236 K/uL (130-400); RED BLOOD CELL COUNT(AUTO) 3.64 MIL/uL (4.50-6.20); RED CELL DISTRIBUTION WIDTH 13.2 % (11.0-15.5); WHITE BLOOD COUNT (AUTO) 10.4 K/uL (4.8-10.8)
[2024-09-27 11:19] LABS: CREATININE 1.8 mg/dL (0.5-1.3); POTASSIUM 4.8 mmol/L (3.5-5.1)
[2024-09-27 11:33] LABS: INR 1.11 (0.85-1.15); PROTHROMBIN TIME 11.9 SEC (9.6-11.6)
[2024-09-27 11:34] LABS: PARTIAL THROMBOPLASTIN TIME 28.5 SEC (26.3-35.5)
[2024-09-27 11:36] VITALS: BP 154/56; PULSE 49; RESP 18; TEMP 97.9
--- NOTE | 2024-09-27 18:58 | EKG ---
[facility] Test Date: 2024-09-27 Test Time: 11:42:52 Pat Name: VALENTINO EASTON Department: [facility] Room: Gender: M Senior Policy Analyst: [id number] : 1945 Requested By: DIANA HUFFMAN Order Number: [id number] Reading MD: Librado Hull Measurements Intervals [place] Rate: 52 P: 94 MD: 229 QRS: 14 QRSD: 106 T: 48 QT: 496 QTc: 461 Interpretive Statements Sinus rhythm Prolonged MD interval Compared to ECG 02/08/2024 09:39:50 First degree AV block now present Electronically Signed On 09-27-2024 19:10:58 PROGRESS MAN by Librado Hull Please click the below link to view image of tracing.
[~2024-10-01] VITALS: Ht 180.3 cm; Wt 87.6 kg
[2024-10-01] VITALS (15 sets, daily range): BP systolic 116–184; BP diastolic 56–77; PULSE 53–59; RESP 12–18; TEMP 97.1–98
[~2024-10-01 08:27] MED LIST changes: +ACET-2743 PO; +AMIO200T68 PO; +LEVO75CA5 PO; -LISI10TA24 PO; -METO-408 PO; +OLME20TA68 PO; -SULF1TAB42 PO; +TAMS-1 PO
[2024-10-01] MEDS: 0.9%NACL 1000ML 1,000 ML IV ONE (10:11)
[2024-10-01] MEDS ORDERED: LIDOCAINE HCL 400MG/20ML VIAL ONE (12:39)
[2024-10-01] MEDS ORDERED: HEParin 10,000 UNIT/10ML (1,000 UNIT/ML) VIAL ONE (12:40)
[2024-10-01] MEDS ORDERED: proPOFol 10 MG/ML 20ML VIAL IV ONE (13:06)
[2024-10-01] MEDS ORDERED: MIDAZOLAM HCL 1 MG/ML 2ML VIAL ONE (13:06)
[2024-10-01] MEDS ORDERED: ondanSETRON 4MG INJ ONE (13:06)
[2024-10-01] MEDS ORDERED: rocuRONium bROMide 10MG/1ML 5ML VL ONE ×2 (13:07→15:10)
[2024-10-01] MEDS ORDERED: LIDOCAINE PF 100MG/5ML (2%) SYRINGE 5ML ONE (13:07)
[2024-10-01] MEDS ORDERED: FENTanyl CITRate PF 50 MCG/1 ML 5ML AMP IV ONE (13:07)
[2024-10-01] MEDS ORDERED: ePHEDrine SULFate 50 MG/ML AMPULE ONE (14:01)
[2024-10-01] MEDS ORDERED: SUGAMMADEX SODIUM 200 MG/2 ML VIAL IV ONE (15:09)
[2024-10-01] MEDS ORDERED: FENTanyl CITRate PF 50 MCG/1 ML 2ML VIAL ONE (15:10)
[2024-10-01] MEDS ORDERED: PROTamine SULFate 10 MG/ML 25ML VIAL IV ONE (16:10)
[2024-10-01] MEDS ORDERED: PANT40TA55 PO (18:12)
[2024-10-01] MEDS ORDERED: SUCR1TAB28 PO (18:12)
[2024-10-01] MEDS ORDERED: acetaMINOPHEN WITH coDEINE 1 TAB TAB PO PRN (18:30)
[2024-10-01] MEDS ORDERED: acetaMINOPHEN 325 MG TAB PO PRN (18:30)
--- NOTE | 2024-10-01 19:40 | NUR ---
BOTH PT AND SPOUSE GIVEN VERBAL AND WRITTEN INSTRUCTIONS. IV REMOVED SITE ASYMPTOMATIC
[2024-10-19] MEDS ORDERED: MIRA25TA PO (22:37)
[2024-10-19] MEDS ORDERED: FOLI0.8T22 PO (22:37)
[2024-10-19] MEDS ORDERED: CLOP-31 PO (22:37)
[2024-10-19] MEDS ORDERED: APIX5TAB PO (22:37)
[2024-10-19] MEDS ORDERED: ALLO100T PO (22:37)
[2024-10-19] MEDS ORDERED: SUCR1TAB2 PO (22:37)
[2024-10-19] MEDS ORDERED: AMIO200T68 PO (22:37)
[2024-10-19] MEDS ORDERED: LEVO75CA5 PO (22:37)
[2024-10-19] MEDS ORDERED: FENO40TA4 PO (22:39)
[2024-10-20] MEDS ORDERED: GABA-529 PO (09:32)
[2024-10-20] MEDS ORDERED: ROSU40 PO (09:32)
[2024-10-22] MEDS ORDERED: METR-172 PO (12:05)
[2024-10-22] MEDS ORDERED: CEFD300C3 PO (12:05)
[2024-10-22] MEDS ORDERED: LACT1CAP58 PO (12:10)
== END 2024-10-01 20:10 | disposition home or self-care (01) ==
LOC: DAH 08:27
PROVIDERS: ATTEND Internal Medicine Cardiovascular Disease
DX: I48.0 Paroxysmal atrial fibrillation (principal); I44.0 Atrioventricular block, first degree; I25.10 Atherosclerotic heart disease of native coronary artery without angina pectoris; E78.5 Hyperlipidemia, unspecified; G47.33 Obstructive sleep apnea (adult) (pediatric); I12.9 Hypertensive chronic kidney disease with stage 1 through stage 4 chronic kidney disease, or unspecified chronic kidney disease; N18.30 Chronic kidney disease, stage 3 unspecified; M19.90 Unspecified osteoarthritis, unspecified site; F17.210 Nicotine dependence, cigarettes, uncomplicated; Z95.5 Presence of coronary angioplasty implant and graft; Z85.828 Personal history of other malignant neoplasm of skin; Z79.899 Other long term (current) drug therapy
CPT/HCPCS: 80048; 85025; 85610; 85730; 36415 ×2; 93005; 93656; 93655; 85347 ×9; 82948 ×2; C1894 ×3; C1732 ×2; C1731; A4649 ×2; C1760 ×3; C1766; A4663; J3010 ×2; J3490 ×4; J7030; J2003; J1644 ×2; J2250; J2704; J2405; A4215; A4222; A4221; A4216; A4606; J2720; A4223 ×3

== ENCOUNTER 2024-10-06 11:30 | Observation (INO) | payer OTHER, MEDICARE ==
[~2024-10-06] VITALS: Ht 180.3 cm; Wt 87.2 kg
[~2024-10-06 11:30] MED LIST changes: +PANT40TA55 PO; +SUCR1TAB28 PO
--- NOTE | 2024-10-06 11:38 | ERN ---
ED Note History of Present Illness Stated Complaint: SOB Chief Complaint: Shortness of Breath Time Seen by MD: 11:34 Dictation: PATIENT IS AN 79-YEAR-OLD MALE COMING IN WITH HIS WITH COMPLAINTS OF ELEVATED BLOOD PRESSURE SINCE MONDAY, GENERALIZED HEADACHE FOR FIVE DAYS SINCE HE HAD AN ABL[place]ONE [place] [facility] [place]. PATIENT IS STATUS POST AN ABLATION BY , ON 10/01/2024. HE WENT TO HOME WITHOUT ANY COMPLICATIONS. HOWEVER HE HAS NOTICED THAT HIS BLOOD PRESSURE HAS BEEN ELEVATED WITH SYSTOLICS 178-185 AND HAS A DIARY WITH HIM. NO CHEST PAIN NO BACK PAIN, DOES STATE HE HAS MILD SHORTNESS A BREATH. NO FEVER NO CHILLS. Allergies: Coded Allergies: No Known Drug Allergies (Unverified Allergy, Unknown, 05/02/14) Home Meds Active Scripts Sucralfate (Carafate) 1 Gram Tablet, 1 TAB PO QID for 7 Days, #56 TAB 0 Refills Prov:RAIN NO MD 10/01/24 Pantoprazole Sodium (Protonix) 40 Mg Ectab, 1 TAB PO DAILY for 14 Days, #14 TAB 0 Refills Prov:RAIN NO MD 10/01/24 Reported Medications Rosuvastatin Calcium (Rosuvastatin Calcium) 20 Mg Tablet, 20 MG PO HS, TAB 10/06/24 Levothyroxine Sodium (Levothyroxine) 75 Mcg Capsule, 1 TAB PO DAILY for 30 Days, #30 CAP 0 Refills 09/27/24 Acetaminophen (Tylenol Extra Strength) 500 Mg Tablet, 2 TAB PO AD PRN for pain or fever for 7 Days, #56 TAB 0 Refills 09/27/24 Tamsulosin HCl (Flomax) 0.4 Mg Cap.er.24h, 0.4 MG PO HS, CAPSULE. 09/27/24 Amiodarone HCl (Amiodarone HCl) 200 Mg Tablet, 200 MG PO BID, TAB 09/27/24 Olmesartan Medoxomil (Olmesartan Medoxomil) 20 Mg Tablet, 20 MG PO HS, TAB 09/27/24 Acetaminophen/Diphenhydramine (Tylenol Pm Exstr 500-25Mg Cplt) 500 Mg-25 Mg Tablet, 1 EACH PO HS, TAB 11/28/23 Gabapentin (Gabapentin) 100 Mg Capsule, 100 MG PO TID, CAP 11/28/23 Clopidogrel Bisulfate (Clopidogrel) 75 Mg Tablet, 75 MG PO DAILY, TAB 11/28/23 Fenofibrate (Fenofibrate) 160 Mg Tablet, 80 MG PO HS, TAB 10/11/23 Allopurinol (Allopurinol) 100 Mg Tablet, 100 MG PO BID, TAB 10/11/23 Folic Acid/Vitamin B Comp W-C (Latosha-Alessandro Tablet) 0.8 Mg Tablet, 0.8 MG PO DAILYLUNCH, TAB 10/11/23 Mirabegron (Myrbetriq) 25 Mg Tab.er.24h, 25 MG PO DAILY, TAB 10/11/23 Nitroglycerin (Nitroglycerin) 0.4 Mg Tab.subl, 0.4 MG SL Q5MINS PRN for CHEST PAIN, TAB.SL 09/04/23 Apixaban (Eliquis) 5 Mg Tablet, 5 MG PO BID, TAB 03/29/18 Discontinued Reported Medications Rosuvastatin Calcium (Rosuvastatin Calcium) 10 Mg Tablet, 10 MG PO HS, TAB 10/11/23 Discontinued Scripts Meclizine HCl (Meclizine HCl) 12.5 Mg Tablet, 12.5 MG PO TID for VERTIGO, #20 TAB Prov:ANDRY MOJICA MD 02/08/24 Past Medical History Past Medical History: A-Fib, Arthritis, High Cholesterol, Heart Disease, Hypertension, Renal Disese Surgical History: Appendectomy Surgical History Other: CARDIAC STENTS Family History: HTN Social History: Smokers, ETOH, Lives with family RN Note Reviewed/Agreed w/PFSH: Yes Review of System Dictation CONSTITUTIONAL: NEGATIVE EXCEPT FOR HPI HEAD/FACE: NEGATIVE EXCEPT FOR HPI EENT: NEGATIVE EXCEPT FOR HPI RESPIRATORY: NEGATIVE EXCEPT FOR HPI MILD SOB GASTROINTESTINAL/ABDOMINAL: NEGATIVE EXCEPT FOR HPI GENITOURINARY: NEGATIVE EXCEPT FOR HPI MUSCULOSKELETAL: NEGATIVE EXCEPT FOR HPI INTEGUMENTARY: NEGATIVE EXCEPT FOR HPI NEUROLOGICAL/PSYCH: NEGATIVE EXCEPT FOR HPI HEADACHE HEMATOLOGIC/LYMPHATIC: NEGATIVE EXCEPT FOR HPI ALL SYSTEMS NEGATIVE, EXCEPT NOTED ABOVE. 13 POINT REVIEW OF SYSTEMS ASSESSED AND ALL NEGATIVE EXCEPT FOR ABOVE. Initial Vital Sign VS Vital Signs Date Time Temp Pulse Resp B/P (MAP) Pulse Ox O2 Delivery O2 Flow Rate FiO2 10/06/24 11:33 98.2 54 18 164/81 96 10/06/24 11:40 Room Air* 0 21 Physical Exam Dictation VITAL SIGNS REVIEWED 11/29 PAIN. GENERAL APPEARANCE: ALERT, ORIENTED X 3, NO ACUTE DISTRESS, WELL DEVELOPED, NOURISHED. HEAD AND FACE: NON-TRAUMATIC. EYES: PERRL, PINK CONJUNCTIVAS, EYELID NO TRAUMA, ANTERIOR CHAMBER WITH ARCUS SENILIS. EARS: PINNAS INTACT AND NO SIGNS OF TRAUMA OR ERYTHEMA EAR CANALS CLEAR AND NO DISCHARGE TM NO ERYTHEMA NOSE: NO DISCHARGE, NO BLEEDING. OROPHARYNX: MOUTH NORMAL, TONGUE PINK, PHARYNX CLEAR,NO ERYTHEMA, TONSILS NO EXUDATES, NO ABSCESSES NOTED, MUCOUS MEMBRANE MOIST NECK: SUPPLE, NON-TENDER, NO THYROMEGALY, NO MASSES, NO JVD, NO BRUITS BREAST:DEFERRED CHEST:NO TENDERNESS, NO CREPITUS, NO PARADOXICAL MOVEMENT, NO RETRACTIONS LUNGS:CLEAR, WELL-VENTILATED, SYMMETRIC, NO RALES, NO WHEEZING, NO RHONCHI, NO STRIDOR, GOOD BREATH SOUNDS BILATERALLY HEART: REGULAR RATE, REGULAR RHYTHM, NO MURMUR, NO GALLOPS VASCULAR: NO PERIPHERAL EDEMA, NO EDEMA ABDOMEN: SOFT, POSITIVE BOWEL SOUNDS, NONDISTENDED, NO GUARDING, NONTENDER, NO REBOUND, NO MASSES NO HEPATOMEGALY, NO SPLENOMEGALY, NO LIN'S SIGN, NO HERNIAS. RECTAL: DEFERRED GENITAL: DEFERRED NEUROLOGICAL: NORMAL SPEECH, MOTOR FUNCTION INTACT, SENSORY FUNCTION INTACT MUSCULOSKELETAL: NECK NONTENDER, FULL RANGE OF MOTION, BACK NONTENDER, FULL RANGE OF MOTION, EXTREMITIES: NONTENDER, FULL RANGE OF MOTION SKIN: COLOR PINK, DRY, NO TURGOR, NO RASH, NO LACERATIONS, NO ABRASIONS, NO CONTUSIONS. LYMPHATIC: DEFERRED Results (Laboratory/Radiology) Laboratory/Radiology Laboratory Tests Test 10/06/24 11:50 10/06/24 12:44 10/06/24 14:28 White Blood Count 9.2 K/uL (4.8-10.8) Red Blood Count 3.60 MIL/uL (4.50-6.20) L Hemoglobin 12.4 g/dL (14.0-18.0) L Hematocrit 36.8 % (42-54) L Mean Corpuscular Volume 102.2 fL (79-99) H Mean Corpuscular Hemoglobin 34.4 pg (27.0-33.0) H Mean Corpuscular Hemoglobin Concent 33.7 g/dL (32.0-36.0) Red Cell Distribution Width 12.9 % (11.0-15.5) Platelet Count 249 K/uL (130-400) Mean Platelet Volume 10.1 fL (7.5-10.5) Immature Granulocyte % (Auto) 0.3 % (0-1) Neutrophils (%) (Auto) 75.7 % (40.0-77.0) Lymphocytes (%) (Auto) 13.2 % (21.0-51.0) L Monocytes (%) (Auto) 7.6 % (3.0-13.0) Eosinophils (%) (Auto) 2.7 % (0.0-8.0) Basophils (%) (Auto) 0.5 % (0.0-5.0) Neutrophils # (Auto) 7.0 K/uL (1.8-7.7) Lymphocytes # (Auto) 1.2 K/uL (1.0-4.8) Monocytes # (Auto) 0.7 K/uL (0.1-1.0) Eosinophils # (Auto) 0.25 K/uL (0.00-0.70) Basophils # (Auto) 0.05 K/uL (0.00-0.20) Absolute Immature Granulocyte (auto 0.03 K/uL (0-1) Nucleated Red Blood Cells 0.0 % (0.0-0.19) Prothrombin Time 12.3 SEC (9.6-11.6) H Prothromb Time International Ratio 1.15 (0.85-1.15) Activated Partial Thromboplast Time 34.2 SEC (26.3-35.5) Sodium Level 143 mmol/L (136-145) Potassium Level 4.1 mmol/L (3.5-5.1) Chloride Level 106 mmol/L (101-111) Carbon Dioxide Level 30 mmol/L (21-32) Blood Urea Nitrogen 17 mg/dL (7-18) Creatinine 1.5 mg/dL (0.5-1.3) H Glomerular Filtration Rate Calc 47 mL/min (>90) Random Glucose 102 mg/dL (70-105) Total Calcium 8.7 mg/dL (8.5-10.1) Magnesium Level 1.60 mg/dL (1.80-2.40) L Total Bilirubin 0.3 mg/dL (0.2-1.0) Direct Bilirubin 0.1 mg/dL (0.0-0.3) Aspartate Amino Transf (AST/SGOT) 25 U/L (10-37) Alanine Aminotransferase (ALT/SGPT) 21 U/L (12-78) Alkaline Phosphatase 44 U/L (50-136) L Troponin I High Sensitivity 140 ng/L (4-75) *H 126 ng/L (4-75) *H B-Type Natriuretic Peptide 205 pg/mL (0-100) H Total Protein 7.0 g/dL (6.0-8.3) Albumin 3.3 g/dL (3.5-5.0) L SARS-CoV-2 Antigen (Rapid) PRESUMPTIVE NEGATIVE PORTABLE CHEST RADIOGRAPH INDICATION: SHORTNESS A BREATH COMPARISON: 02/08/2024 FINDINGS: desk monitor leads overlie the field of view. Heart size is normal. Mild calcific plaque is present along the aortic arch riggins. The pulmonary vascularity and marco appear normal. No abnormal pulmonary parenchymal opacity or consolidation identified. Linear scarring at both lung bases. No significant pleural effusion noted. No pneumothorax detected. IMPRESSION: No radiographic evidence for any acute cardiopulmonary process. Labs Reviewed?: Yes EKG Comment: EKG SINUS BRADYCARDIA/HEART RATE 54/AXIS NORMAL/NO ECTOPY ED Course ED Course Orders Procedure Category Date Status Time Covid19 (Sars Antigen LAB 10/06/24 Complete Rapid) 11:34 Cbc With Differential LAB 10/06/24 Complete 11:34 B-Type Natriuretic LAB 10/06/24 Complete Peptide 11:34 Chest 1vw RAD 10/06/24 Resulted 11:34 12 Lead Ekg Tracing- EKG 10/06/24 Logged Technical 11:34 Magnesium LAB 10/06/24 Complete 11:34 Troponin I High LAB 10/06/24 Complete Sensitivity 11:34 Basic Metabolic Panel LAB 10/06/24 Complete 11:34 Acetaminophen 500mg PHA 10/06/24 Complete Tab (Tylenol 500mg T 12:00 Hydralazine 20mg Inj PHA 10/06/24 Complete (Apresoline 20mg In 12:30 Hydralazine 20mg Inj PHA 10/06/24 Complete (Apresoline 20mg In 12:07 Magnesium 2gm Premix PHA 10/06/24 In Process 50ml (Magnesium 2gm 13:00 12 Lead Ekg Tracing- EKG 10/06/24 Logged Technical 12:55 Troponin I High LAB 10/06/24 Complete Sensitivity 12:55 Hydralazine 20mg Inj PHA 10/06/24 Complete (Apresoline 20mg In 14:00 Nicardipine 25mg Inj PHA 10/06/24 In Process (Cardene 25mg Inj) 13:56 Edm Admit Bridge Order ADM 10/06/24 Transmitted 14:27 Cardiology Consult CONPHYSVC 10/06/24 Transmitted 14:43 Telemetry Monitoring CPOE 10/06/24 Transmitted 14:43 Ct Head/Brain W/O CT 10/06/24 Resulted Contrast 14:43 Admit Orders ADM 10/06/24 Transmitted 14:44 Elevate Hob At 30 CPOE 10/06/24 Transmitted Degrees 14:44 Fall Precautions CPOE 10/06/24 Transmitted 14:44 *Nursing CPOE 10/06/24 Transmitted Communication: 14:44 Pt And Ptt LAB 10/06/24 Complete 14:47 Hepatic Function Panel LAB 10/06/24 Complete 14:47 Urinalysis Profile LAB 10/06/24 Logged 14:47 Hydralazine 20mg Inj PHA 10/06/24 In Process (Apresoline 20mg In 15:00 Nitroglycerin 0.4mg PHA 10/06/24 In Process Sl Tab (Nitrostat) 15:00 Acetaminophen 500mg PHA 10/06/24 In Process Tab (Tylenol 500mg T 15:00 Nifedipine 30mg Er PHA 10/06/24 In Process (Adalat 30mg) 15:00 Losartan 50 Mg Tablet PHA 10/06/24 In Process (Cozaar 50 Mg Tab) 21:00 Clopidogrel 75mg Tab PHA 10/07/24 In Process (Plavix 75mg) 09:00 Amiodarone 200mg Tab PHA 10/06/24 In Process (Pacerone 200mg) 21:00 Atorvastatin 40mg PHA 10/06/24 In Process (Lipitor 40mg) 21:00 Gabapentin 100 Mg Cap PHA 10/06/24 In Process (Neurontin 100 Mg 21:00 Sucralfate (Carafate) PHA 10/06/24 In Process 15:30 Pantoprazole 40mg Tab PHA 10/07/24 In Process (Protonix 40mg Tab 07:30 Thyroid Stimulating LAB 10/06/24 In Process Hormone 15:58 Vitamin B12 Serum LAB 10/06/24 In Process 15:58 Folic Acid Serum LAB 10/06/24 In Process 15:58 Echo 2-D Complete ECHO 10/06/24 Logged 15:58 Clear Liquid DIET 10/06/24 Transmitted Dinner Allopurinol 100mg PHA 10/06/24 In Process (Zyloprim 100mg) 21:00 Apixaban 5 Mg PHA 10/06/24 In Process (Eliquis) 21:00 Tamsulosin Hcl PHA 10/06/24 In Process (Flomax) 21:00 Home Medication (Home PHA 10/06/24 In Process Medication) 21:00 Folic Acid/Vitamin B PHA 10/07/24 In Process Comp W-C (Nephrovit 12:00 Levothyroxine 75 Mcg PHA 10/07/24 In Process Tablet (Synthroid 7 06:30 Home Medication (Home PHA 10/07/24 In Process Medication) 09:00 Acetaminophen 500mg PHA 10/06/24 In Process Tab (Tylenol 500mg T 21:00 Diphenhydramine Hcl PHA 10/06/24 In Process (Benadryl Cap) 21:00 Current Medications Medications (Trade) Dose Ordered Sig/Kaela Route PRN Reason Start Time Stop Time Status Last Admin Dose Admin Acetaminophen (TYLenol 500MG TAB) 1,000 mg ONCE ONCE PO 10/06/24 12:00 10/06/24 12:01 DC 10/06/24 12:35 Hydralazine HCl (APRESOLine 20MG INJ) 10 mg ONCE ONCE IV 10/06/24 12:30 10/06/24 12:31 DC 10/06/24 12:37 Hydralazine HCl (APRESOLine 20MG INJ) 20 mg ONCE ONCE IV 10/06/24 14:00 10/06/24 14:01 DC 10/06/24 13:48 Hydralazine HCl (APRESOLine 20MG INJ) 20 mg STK-MED ONCE .ROUTE 10/06/24 12:07 10/06/24 12:07 DC Magnesium Sulfate 50 ml @ 0 mls/hr PROTOCOL IV 10/06/24 13:00 11/05/24 12:59 10/06/24 14:34 Nicardipine HCl 25 mg/Sodium Chloride 250 ml @ 0 mls/hr PROTOCOL IV 10/06/24 13:56 10/07/24 12:00 Vital Signs Date Time Temp Pulse Resp B/P (MAP) Pulse Ox O2 Delivery O2 Flow Rate FiO2 10/06/24 16:58 96 Room Air* 0 10/06/24 16:49 97.3 67 20 158/68 96 Room Air 10/06/24 16:18 75 17 156/66 97 Room Air* 0 10/06/24 15:43 98.4 63 18 174/71 97 Room Air* 0 10/06/24 14:34 98.8 54 20 161/60 96 Room Air* 0 21 10/06/24 13:48 98.8 54 20 180/76 96 Room Air* 0 10/06/24 12:43 98.2 53 53 173/67 96 Room Air* 0 10/06/24 11:40 98.2 53 53 193/77 98 Room Air* 0 10/06/24 11:33 98.2 54 18 164/81 96 1255, 1ST EKG SINUS BRADYCARDIA WITH NO CHANGES, TROPONIN 140. NO COMPLAINTS OF PAIN AT THIS TIME WE WILL FOLLOW TO REPEAT EKG AND TROPONIN. 1 ONE THOUSAND FOUR HUNDRED, PATIENT CONTINUES TO BE HYPERTENSIVE WITH [id number] DESPITE TWO DOSES OF HYDRALAZINE. NO CHEST PAIN NO BACK PAIN NO SOB MAGNESIUM IS BEING INFUSED AT THIS TIME. PATIENT WILL BE STARTED ON CARDENE DRIP TO MAINTAIN SYSTOLIC BLOOD PRESSURE LEFT THAN 170 AND PATIENT WILL BE ADMITTED TO THE HOSPITAL FOR UNCONTROLLED HYPERTENSION/HYPOMAGNESEMIA/DEHYDRATION 1425 HERE AND REVIEWED LABS EKG TROPONIN CHEST X-RAY AND INTERVENTION FOR BLOOD PRESSURE TO INCLUDE HYDRALAZINE TIMES DO AND THEN SUBSEQUENTLY CARDENE DUE TO ACCELERATED BLOOD PRESSURE. HE AGREED TO ADMIT PATIENT. Medical Decision Making MDM MDM: DIFFERENTIAL DIAGNOSIS: UNCONTROLLED HYPERTENSION/ACS/AMI/CONGESTIVE HEART FAILURE/FLUID OVERLOAD/ELECTROLYTE IMBALANCE/DEHYDRATION RATIONALE: TESTS CONSIDERED AND ORDERED SECONDARY TO SHARED DECISION MAKING INCLUDE: LABS, ECG AND RADIOLOGY PREVIOUS OUTSIDE RECORDS REVIEWED: OLD ER VISITS./ARRHYTHMIA REVIEWED RISK OF COMPLICATION AND/OR MORBIDITY OR MORTALITY OF PATIENT MANAGEMENT: MODERATE PATIENT HYPERTENSIVE DESPITE IV HYDRALAZINE X2 DOSES MEDICATIONS-PER MEDICATION RECONCILIATION REVIEWED NEED FOR HOSPITALIZATION: PATIENT DOES MEET CRITERIA FOR HOSPITALIZATION. PATIENT WILL NEED TO BE MANAGED FOR HIS CARDENE DRIP AND UNCONTROLLED HYPERTENSION. ELECTROLYTES WE WILL NEED TO BE RECHECKED AND PATIENT NEEDS TO BE MONITORED WITH POSSIBLE CARDIAC CONSULTATION NEED FOR EMERGENCY MAJOR/MINOR SURGERY: NO THERE ARE NO SOCIAL CONCERNS WITH THIS PATIENT. PRESCRIPTION DRUG MANAGEMENT PRESCRIPTIONS WILL INCLUDE SYMPTOMATIC CARE PATIENT'S PRIOR EXTERNAL MEDICAL RECORDS FROM OTHER ER VISITS WERE REVIEWED BY ME INDICATED. PRIOR TESTING AND RESULTS FROM PREVIOUS VISITS WERE REVIEWED. PRIOR TESTS WERE TAKEN INTO ACCOUNT WITH MEDICAL DECISION MAKING AND RESOURCE UTILIZATION, INDEPENDENT HISTORIAN/HISTORIANS WERE USED TO OBTAIN COMPLETE MEDICAL HISTORY. I INDEPENDENTLY INTERPRETED THE TEST THAT WERE PERFORMED, RESULTS WERE REVIEWED BY ME AND CONSIDERED FINDINGS ON RADIOLOGY IF ORDERED. MEDICAL MANAGEMENT AND EXAMINATION INTERPRETATION DISCUSSIONS WERE HAD BY ME WITH OTHER QUALIFIED HEALTHCARE PROFESSIONALS INDICATED FOR THE PATIENT'S CARE. Critical Care Note Critical Time: 45 minutes (CARDENE DRIP TO BE INITIATED FOR REFRACTIVE BE HYPERTENSION DESPITE TWO DOSES OF HYDRALAZINE IV PUSH. PATIENT HAS ALSO TAKEN HIS BLOOD PRESSURE MEDICATIONS THIS MORNING AND HAS THOSE LISTED WITH HIM. NO CHEST PAIN NO BACK PAIN NO SOB PATIENT DOES HAVE MY HYPOMAGNESEMIA WITH MAGNESIUM 1.6,2 G BEING INFUSED. WE WILL CONTINUE TO MONITOR PATIENT CLOSELY FOR EFFECTS OF CARDENE DRIP IN THE HAVE PATIENT ADMITTED TO THE HOSPITAL FOR UNCONTROLLED HYPERTENSION.) DX & DISP Disposition: Inpatient Departure Impression: Primary Impression: Uncontrolled hypertension Additional Impressions: Dehydration, Hypomagnesemia, Elevated troponin level not due to acute coronary syndrome Condition: Stable Referrals: GERARDO ROBLERO MD (PCP) Time of Disposition: 14:08 I have reviewed the case, and I agree with, Diagnosis and Plan ATTESTATION BY PHYSICIAN I PERFORMED THE SUBSTANTIVE PORTION OF THE VISIT. I HAVE REVIEWED AND PERSONALLY MADE AND APPROVED THE MANAGEMENT PLAN THAT IS DOCUMENTED IN THE NOTE BY MYSELF FOR THE A PP. I ACKNOWLEDGED FOR RESPONSIBILITY FOR THE PATIENT'S MANAGEMENT PLAN. LISSY SÁNCHEZ NP Oct 06, 2024 11:38 TABITHA WRIGHT MD Oct 06, 2024 17:24
[2024-10-06 12:12] LABS: BASOPHILS # (AUTO) 0.05 K/uL (0.00-0.20); BASOPHILS % (AUTO) 0.5 % (0.0-5.0); EOSINOPHILS # (AUTO) 0.25 K/uL (0.00-0.70); EOSINOPHILS % (AUTO) 2.7 % (0.0-8.0); HEMATOCRIT 36.8 % (42-54); IMMATURE GRANULOCYTE ABSOLUTE 0.03 K/uL (0-1); LYMPHOCYTES # (AUTO) 1.2 K/uL (1.0-4.8); LYMPHOCYTES % (AUTO) 13.2 % (21.0-51.0); MEAN CORPUSCULAR HEMOGLOBIN 34.4 pg (27.0-33.0); MEAN CORPUSCULAR HGB CONC 33.7 g/dL (32.0-36.0); MEAN CORPUSCULAR VOLUME 102.2 fL (79-99); MONOCYTES # (AUTO) 0.7 K/uL (0.1-1.0); MONOCYTES % (AUTO) 7.6 % (3.0-13.0); NEUTROPHILS % (AUTO) 75.7 % (40.0-77.0); PLATELET COUNT (AUTO) 249 K/uL (130-400); RED CELL DISTRIBUTION WIDTH 12.9 % (11.0-15.5); WHITE BLOOD COUNT (AUTO) 9.2 K/uL (4.8-10.8)
--- NOTE | 2024-10-06 12:23 | HMCIMG ---
PORTABLE CHEST RADIOGRAPH INDICATION: SHORTNESS A BREATH COMPARISON: 02/08/2024 FINDINGS: patient monitor leads overlie the field of view. Heart size is normal. Mild calcific plaque is present along the aortic arch riggins. The pulmonary vascularity and marco appear normal. No abnormal pulmonary parenchymal opacity or consolidation identified. Linear scarring at both lung bases. No significant pleural effusion noted. No pneumothorax detected. IMPRESSION: No radiographic evidence for any acute cardiopulmonary process.
[2024-10-06 12:33] LABS: CREATININE 1.5 mg/dL (0.5-1.3); MAGNESIUM 1.6 mg/dL (1.80-2.40); POTASSIUM 4.1 mmol/L (3.5-5.1)
[2024-10-06] MEDS: hydrALAZine 20MG/ML VIAL ONE (12:34)
[2024-10-06] MEDS: acetaMINOPHEN 500 MG TABLET PO ONE (12:35)
[2024-10-06] MEDS: hydrALAZine 20MG/ML VIAL IV ONE ×2 (12:37→13:48)
[2024-10-06 12:41] LABS: B-TYPE NATRIURETIC PEPTIDE 205 pg/mL (0-100)
[2024-10-06] MEDS: MAGNESIUM 2GM PREMIX 50ML 50 ML IV SCH (14:34)
--- NOTE | 2024-10-06 14:35 | NUR ---
ANA DRIP HELD DUE TO BP 161/60
[2024-10-06] MEDS ORDERED: NITROGLYCERIN 0.4 MG SL TAB SL PRN (15:00)
[2024-10-06] MEDS ORDERED: hydrALAZine 20MG/ML VIAL IV PRN (15:00)
[2024-10-06] MEDS ORDERED: acetaMINOPHEN 500 MG TABLET PO PRN ×2 (15:00→21:00)
[2024-10-06 15:24] LABS: INR 1.15 (0.85-1.15); PROTHROMBIN TIME 12.3 SEC (9.6-11.6)
[2024-10-06 15:25] LABS: PARTIAL THROMBOPLASTIN TIME 34.2 SEC (26.3-35.5)
[2024-10-06 15:30] LABS: ALBUMIN 3.3 g/dL (3.5-5.0); BILIRUBIN,DIRECT 0.1 mg/dL (0.0-0.3); BILIRUBIN,TOTAL 0.3 mg/dL (0.2-1.0)
[2024-10-06] MEDS: nifeDIPine ER 30 MG TAB PO SCH (15:38)
[2024-10-06] MEDS: SUCRALFATE 1 GM/10 ML PO SCH (15:38)
[2024-10-06] MEDS ORDERED: ROSU20TA98 PO (15:52)
--- NOTE | 2024-10-06 15:52 | NUR ---
MED REC DONE AT THIS TIME.
--- NOTE | 2024-10-06 16:18 | HMCIMG ---
CT HEAD/BRAIN W/O CONTRAST CLINICAL HISTORY: headache, HTN Urgency COMPARISON: None TECHNIQUE: Multiple sequential axial images of the head were obtained from the base of the skull through vertex. CT was performed with one or more of the following dose reduction techniques: automated exposure control, adjustment of the mA and/or kV according to patient size, or use of iterative reconstruction technique FINDINGS: There is mild atrophy and small vessel disease. The orbital contents, paranasal sinuses and mastoid air cells are within normal limits. The calvarium is intact. IMPRESSION: There are no acute findings.
[2024-10-06 16:49] VITALS: BP 158/68; PULSE 67; RESP 20; TEMP 97.3
[2024-10-06 16:58] VITALS: O2SAT 96
[2024-10-06 17:51] LABS: THYROID STIMULATING HORMONE 3.85 uIU/mL (0.36-3.74)
--- NOTE | 2024-10-06 17:51 | CONS ---
Cardiology Consult Note Cardiology Attending: Tano Canseco Consulting Physician: Yanyist Date of Service: 10/06/24 Reason for Consult: Hypertensive emergency HPI: This is an 79 year male with a past medical history of HTN, HLP, CAD status post PCI with ARTIE placement to the LCX x2 and balloon angioplasty to the OM done in March of 2018, normal left ventricle systolic function (LVEF 55% by echocardiogram done on 07/2023), paroxysmal atrial fibrillation status post successful ablation done on 10/01/2024, abdominal aortic aneurysm (measuring 4.4 cm), tobacco abuse, gout, basal cell carcinoma, and CKD stage 3 who presents with high blood pressure, of three days in duration. The blood pressure issues began spontaneously, on Monday night, and since then patient's blood pressure has r emained elevated, ranging between 150-191/70-100 mmHg. This despite the patient being compliant with his antihypertensive therapy which includes olmesartan 20 mg daily and tamsulosin 0.4 mg daily. Associated symptoms include headache and shortness of breath. Pertinent negatives include fever, chills, dizziness, syncope, chest pain, chest pressure, palpitations, PND, orthopnea, abdominal pain, nausea, vomiting, diaphoresis, weight gain, or lower extremity swelling/edema. The persistence of the blood pressure issues prompted the patient who comes to the hospital further evaluation and treatment. In the ED patient was found to have systolic blood pressures ranging between 170 through 190 mm Hg. He was subsequently started on nifedipine ER 30 mg daily, which has since improved his blood pressure. Cardiology was consulted for treatment recommendations regarding this issue. PMH: Listed above PSH: Listed above FH: Significant for CAD, HTN, DMII, and CVA. SH: Positive for tobacco abuse. Denies alcohol or illicit drug use. Allergies: Coded Allergies: No Known Drug Allergies (Unverified Allergy, Unknown, 05/02/14) Review of systems: General: Denies fever or chills HEENT: Denies changes in vision, earache or sore throat Neck: Denies pain or stiffness Cardio: As per the HPI Pulm: As per HPI. GI: Denies abdominal pain, nausea, vomiting, diarrhea, or constipation. MSK: Denies muscle or back pain. Heme: Denies anemia, easy bruising, or bleeding. Neuro: As per HPI. Psych: Denies anxiety, depression, or suicidal ideations. Physical Exam: Vital Signs Date Time Temp Pulse Resp B/P (MAP) Pulse Ox O2 Delivery O2 Flow Rate FiO2 10/06/24 16:58 96 Room Air* 0 21 10/06/24 16:49 97.3 67 20 158/68 General: Alert and oriented x 3. NAD HEENT: NC/AT. Oral mucosa is moist. Neck: No masses, JVD, or carotid bruits Lungs: NRD. SCM. B/L CTA. No wheezing, rales or rhonchi. Cardio: Rate @ 77bpm. Normal S1 and S2. +S4. PMI was not displaced. Abdomen: Soft. NT. ND. Normal active bowel sounds x 4 quadrants. Extremities: No edema, clubbing or cyanosis. Plus two pulses noted throughout. Neuro: CN II-XII were grossly intact. No focal deficits. Labs: Laboratory Tests Test 10/06/24 11:50 10/06/24 12:44 10/06/24 14:28 Range/Units White Blood Count 9.2 4.8-10.8 K/uL Red Blood Count 3.60 L 4.50-6.20 MIL/uL Hemoglobin 12.4 L 14.0-18.0 g/dL Hematocrit 36.8 L 42-54 % Mean Corpuscular Volume 102.2 H 79-99 fL Mean Corpuscular Hemoglobin 34.4 H 27.0-33.0 pg Mean Corpuscular Hemoglobin Concent 33.7 32.0-36.0 g/dL Red Cell Distribution Width 12.9 11.0-15.5 % Platelet Count 249 130-400 K/uL Mean Platelet Volume 10.1 7.5-10.5 fL Immature Granulocyte % (Auto) 0.3 0-1 % Neutrophils (%) (Auto) 75.7 40.0-77.0 % Lymphocytes (%) (Auto) 13.2 L 21.0-51.0 % Monocytes (%) (Auto) 7.6 3.0-13.0 % Eosinophils (%) (Auto) 2.7 0.0-8.0 % Basophils (%) (Auto) 0.5 0.0-5.0 % Neutrophils # (Auto) 7.0 1.8-7.7 K/uL Lymphocytes # (Auto) 1.2 1.0-4.8 K/uL Monocytes # (Auto) 0.7 0.1-1.0 K/uL Eosinophils # (Auto) 0.25 0.00-0.70 K/uL Basophils # (Auto) 0.05 0.00-0.20 K/uL Absolute Immature Granulocyte (auto 0.03 0-1 K/uL Nucleated Red Blood Cells 0.0 0.0-0.19 % Prothrombin Time 12.3 H 9.6-11.6 SEC Prothromb Time International Ratio 1.15 0.85-1.15 Activated Partial Thromboplast Time 34.2 26.3-35.5 SEC Sodium Level 143 136-145 mmol/L Potassium Level 4.1 3.5-5.1 mmol/L Chloride Level 106 101-111 mmol/L Carbon Dioxide Level 30 21-32 mmol/L Blood Urea Nitrogen 17 7-18 mg/dL Creatinine 1.5 H 0.5-1.3 mg/dL Glomerular Filtration Rate Calc 47 >90 mL/min Random Glucose 102 70-105 mg/dL Total Calcium 8.7 8.5-10.1 mg/dL Magnesium Level 1.60 L 1.80-2.40 mg/dL Total Bilirubin 0.3 0.2-1.0 mg/dL Direct Bilirubin 0.1 0.0-0.3 mg/dL Aspartate Amino Transf (AST/SGOT) 25 10-37 U/L Alanine Aminotransferase (ALT/SGPT) 21 12-78 U/L Alkaline Phosphatase 44 L 50-136 U/L Troponin I High Sensitivity 140 *H 126 *H 4-75 ng/L B-Type Natriuretic Peptide 205 H 0-100 pg/mL Total Protein 7.0 6.0-8.3 g/dL Albumin 3.3 L 3.5-5.0 g/dL SARS-CoV-2 Antigen (Rapid) PRESUMPTIVE NEGATIVE NEGATIVE ECG 10/06/2024: Sinus bradycardia. No ST elevation or depression noted. Assessment: 1. Hypertensive emergency 2. Type 2 FL 3. Headache 4. Paroxysmal atrial fibrillation status post successful ablation done on 10/01/2024 5. CAD status post PCI with ARTIE placement to the LCX x2 and balloon angioplasty to the OM done in March of 2018 6. Normal left ventricle systolic function (LVEF greater than 55% by echocardiogram done on 07/2023) 7. HLP 8. Gout 9. Tobacco abuse 10. Abdominal aortic aneurysm (4.4 cm) Plan: 1. Hypertensive emergency -end-organ damage: Troponin I 140 > 126 -BP range: 150-191/70-100 mmHg -current BP: 158/68 mmHg -the patient complains of high blood pressure, the began on Monday evening and since then has remained constant. The etiology behind the elevated blood pressure is unknown, the pain related to suboptimal outpatient therapy. In order to address this issue we recommend starting the patient on nifedipine ER 30 mg daily. The patient he is on olmesartan as an outpatient, but it will be substituted for losartan 50 mg b.i.d.. We will monitor the patient's blood pressure for the next 24 hours to determine the effectiveness of these medications in controlling his blood pressure 2. Type 2 FL -stable -ECG 10/06/2024: Sinus bradycardia. No ST elevation or depression noted. -laboratory data high sensitivity troponin I: 140 > 126 -the patient denies any chest pain, chest pressure, or palpitations. -the elevated cardiac enzymes are thought to be a type 2 FL, that has developed in the setting of hypertensive emergency. In order to address this issue we recommend treating the inciting factor. We do not recommend pursuing a Lexiscan stress test or LHC/coronary angiogram. The patient will continue on his home regimen of clopidogrel 75 mg daily, rosuvastatin 20 mg daily and amiodarone 200 mg daily. 3. Paroxysmal atrial fibrillation status post successful ablation done on 10/01/2024 -substrate: Dilated atria --ECG 10/06/2024: Sinus bradycardia. No ST elevation or depression noted. -currently stable, asymptomatic, and in his sinus rhythm. -continue amiodarone 200 mg daily and Eliquis 5 mg b.i.d.. 4. CAD status post PCI with ARTIE placement to the LCX x2 and balloon angioplasty to the OM done in March of 2018 -Stable -please see problem #2 for treatment details regarding this issue. Thank you for this interesting consult and allowing us to participate in the care of your patient. Further recommendations to follow TANO CANSECO MD Oct 06, 2024 17:51
--- NOTE | 2024-10-06 17:54 | EKG ---
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
--- NOTE | 2024-10-06 17:55 | EKG ---
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
--- NOTE | 2024-10-06 19:14 | HP ---
[facility] Date of Service: Oct 06, 2024 Time of Service: 19:14 HISTORY OF PRESENT ILLNESS: Date of service: 10/06/2024, patient was seen in ER room 12, 79-year-old male with underlying history of hypertension, hyperlipidemia, coronary artery disease with prior history of PCI in 2018, history of paroxysmal atrial fibrillation, CKD Stage III, with recent cardiac ablation done on [address] Mir, history of chronic anticoagulation with Eliquis who presented to the ER for further evaluation of elevated blood pressure and shortness of breath. Patient states that since Monday this week, he has noted that his systolic blood pressures have been running high between 150s-170s. Today he noticed that systolic blood pressure was 191 and and he noted that he was having significant frontal headache as well as shortness of breath prompting him to come to the ER for further evaluation. Headache is moderate in intensity which he rates as 5/10. Denies any significant weakness of upper or lower extremity and denies any blurry vision. Shortness of breath is worse with exertion as well as lying flat. On presentation to the ER, patient was noted to have blood pressure fluctuating between 160s-190s systolic with heart rate in the 50s with normal sinus rhythm. Labs on presentation showed WBC count of 9200, hemoglobin 12.4, platelet count of 405200, MCV of 102. CMP remarkable for sodium of 143, potassium 4.1, chloride of 106, BUN of 17, creatinine 1.5. Cardiac panel was noted to be elevated with high sensitivity troponin of 140. Patient denied having active chest pain. Patient will be admitted further management of hypertensive emergency with elevated troponin. Consultation will be requested with Dr. Canseco with Cardiology. Patient received IV hydralazine 10 mg x 2 in the ER, and blood pressure was noted to be slowly improving. We will start patient on oral antihypertensives with nifedipine ER 30 mg daily and substitute losartan for olmesartan at 50 mg at bedtime. We will see how patient progresses in the next 24-48 hours. REVIEW OF SYSTEMS CONSTITUTIONAL: Denies fevers, chills, or night sweats. No unintentional weight loss reported. NEUROLOGICAL: Patient reports having headache ENT: No hearing loss, otalgia, otorrhea, rhinitis, rhinorrhea, hoarseness, or sore throat. CARDIOVASCULAR: Denies any exertional angina, dyspnea on exertion, orthopnea, paroxysmal nocturnal dyspnea, palpitations, life-threatening arrhythmias, cla udication. PULMONARY: Patient reports having PND and dyspnea on exertion SLEEP: Denies morning headaches, daytime somnolence or napping. Denies difficulty falling asleep, staying asleep, waking from sleep. Denies knowledge of snoring. GASTROINTESTINAL: Denies any type of dysphagia to either liquids or solids. Denies nausea, vomiting, pyrosis, early satiety, abdominal pain, diarrhea, constipation, or changes in stool consistency or caliber. Denies coffee-ground emesis, hematemesis, hematochezia, or melanotic stools. GENITOURINARY: Denies frequency, urgency, nocturia, hematuria or incontinence (Storage/Irritative symptoms.) Low urinary stream, straining to void, urinary intermittency or hesitancy, splitting of the voiding stream, terminal dribbling. ENDOCRINOLOGIC: Denies polyuria, polydipsia, polyphagia or heat/cold intolerances. HEMATOLOGIC: Denies thrombophilia/previous clots, or coagulopathy/bleeding disorders. ONCOLOGIC: Denies personal history of malignancy. DERMATOLOGIC: Denies rashes or pruritus. PSYCHIATRIC: Denies any suicidal or homicidal ideation. Denies hallucinations. PAST MEDICAL HISTORY: Hypertension, hyperlipidemia, coronary artery disease, history of paroxysmal atrial fibrillation, history of basal cell carcinoma involving the right shoulder and left arm, history of melanoma of the right shoulder, vertigo, history of sepsis in 2022, BPH, GERD, history of urinary tract infection, hypothyroidism, gout PAST SURGICAL HISTORY: History of appendectomy, endoscopy, TURP, history of PCI in 2018, recent history of AFib ablation on 10/01/2024, PAST SOCIAL HISTORY: Currently denies active smoking or alcohol consumption, patient is a previous smoker and vapes occasionally FAMILY HISTORY: Family history of heart disease Allergies: Patient denies known drug allergies Home medications: Rosuvastatin 20 mg q.h.s., Protonix 40 mg daily, Carafate 1 g q.i.d., acetaminophen 500 mg p.r.n. for pain, amiodarone 200 mg b.i.d., levothyroxine 75 mcg daily, olmesartan 20 mg at bedtime, Flomax 0.4 mg at bedtimes, clopidogrel 75 mg daily, gabapentin 100 mg t.i.d., allopurinol 100 mg b.i.d., fenofibrate 80 mg at bedtime, Nephro-Alessandro daily, Myrbetriq 25 mg daily, apixaban 5 mg b.i.d. Coded Allergies: No Known Drug Allergies (Unverified Allergy, Unknown, 05/02/14) PHYSICAL EXAM GENERAL APPEARANCE: The patient is awake, alert, and oriented, in no acute cardiopulmonary distress. NEUROLOGICAL: Cranial nerves II-XII grossly intact. Motor is 5/5 in bilateral upper and lower extremities proximal to distal. No sensory deficits. HEENT: Face is symmetric. Pupils are equal and reactive. Extraocular movements are intact. NECK: Supple. No JVD. No thyromegaly. No submental, submandibular, pre- /postauricular, occipital or supraclavicular lymphadenopathy. CHEST: Normal chest expansion. No Telemetry. LUNGS: Absence of any rales, rhonchi or any wheezing. CARDIOVASCULAR: Regular. S1 and S2 normal. No appreciable rubs, murmurs or gallops. ABDOMEN: Soft, nontender, and nondistended. There is no rebound, voluntary guarding, or rigidity. : Deferred. No Rolon. EXTREMITIES: Non-edematous and not cyanotic. No clubbing. Good capillary refill. SKIN: No skin breakdown. Vital Sign (Last 24 Hours) 10/06/24 10/06/24 16:49 16:58 Temp 97.3 Pulse 67 Resp 20 B/P (MAP) 158/68 Pulse Ox 96 O2 Delivery Room Air* O2 Flow Rate 0 FiO2 21 LABS: Laboratory: Test 10/06/24 14:28 10/06/24 12:44 10/06/24 11:50 Range/Units Troponin I High Sensitivity 126 *H 4-75 ng/L Vitamin B12 Level 1016 H 193-986 pg/mL Folic Acid (LAB) > 20.00 H 2-20 ng/mL Thyroid Stimulating Hormone (TSH) 3.85 #H 0.36-3.74 uIU/mL SARS-CoV-2 Antigen (Rapid) PRESUMPTIVE NEGATIVE NEGATIVE White Blood Count 9.2 4.8-10.8 K/uL Red Blood Count 3.60 L 4.50-6.20 MIL/uL Hemoglobin 12.4 L 14.0-18.0 g/dL Hematocrit 36.8 L 42-54 % Mean Corpuscular Volume 102.2 H 79-99 fL Mean Corpuscular Hemoglobin 34.4 H 27.0-33.0 pg Mean Corpuscular Hemoglobin Concent 33.7 32.0-36.0 g/dL Red Cell Distribution Width 12.9 11.0-15.5 % Platelet Count 249 130-400 K/uL Mean Platelet Volume 10.1 7.5-10.5 fL Immature Granulocyte % (Auto) 0.3 0-1 % Neutrophils (%) (Auto) 75.7 40.0-77.0 % Lymphocytes (%) (Auto) 13.2 L 21.0-51.0 % Monocytes (%) (Auto) 7.6 3.0-13.0 % Eosinophils (%) (Auto) 2.7 0.0-8.0 % Basophils (%) (Auto) 0.5 0.0-5.0 % Neutrophils # (Auto) 7.0 1.8-7.7 K/uL Lymphocytes # (Auto) 1.2 1.0-4.8 K/uL Monocytes # (Auto) 0.7 0.1-1.0 K/uL Eosinophils # (Auto) 0.25 0.00-0.70 K/uL Basophils # (Auto) 0.05 0.00-0.20 K/uL Absolute Immature Granulocyte (auto 0.03 0-1 K/uL Nucleated Red Blood Cells 0.0 0.0-0.19 % Prothrombin Time 12.3 H 9.6-11.6 SEC Prothromb Time International Ratio 1.15 0.85-1.15 Activated Partial Thromboplast Time 34.2 26.3-35.5 SEC Sodium Level 143 136-145 mmol/L Potassium Level 4.1 3.5-5.1 mmol/L Chloride Level 106 101-111 mmol/L Carbon Dioxide Level 30 21-32 mmol/L Blood Urea Nitrogen 17 7-18 mg/dL Creatinine 1.5 H 0.5-1.3 mg/dL Glomerular Filtration Rate Calc 47 >90 mL/min Random Glucose 102 70-105 mg/dL Total Calcium 8.7 8.5-10.1 mg/dL Magnesium Level 1.60 L 1.80-2.40 mg/dL Total Bilirubin 0.3 0.2-1.0 mg/dL Direct Bilirubin 0.1 0.0-0.3 mg/dL Aspartate Amino Transf (AST/SGOT) 25 10-37 U/L Alanine Aminotransferase (ALT/SGPT) 21 12-78 U/L Alkaline Phosphatase 44 L 50-136 U/L B-Type Natriuretic Peptide 205 H 0-100 pg/mL Total Protein 7.0 6.0-8.3 g/dL Albumin 3.3 L 3.5-5.0 g/dL Current Medications Medications (Trade) Dose Ordered Sig/Kaela Route PRN Reason Start Time Stop Time Status Last Admin Dose Admin Acetaminophen (TYLenol 500MG TAB) 500 mg HS PRN PO SLEEP 10/06/24 21:00 11/05/24 20:59 Acetaminophen (TYLenol 500MG TAB) 500 mg Q6H PRN PO MILD PAIN (1-3) 10/06/24 15:00 11/05/24 14:59 Allopurinol (ZYLOprim 100MG) 100 mg BID PO 10/06/24 21:00 11/05/24 20:59 Amiodarone HCl (pacERONE 200MG) 200 mg BID PO 10/06/24 21:00 11/05/24 20:59 Apixaban (EliquIS) 5 mg BID PO 10/06/24 21:00 11/05/24 20:59 Atorvastatin Calcium (LIPItor 40MG) 40 mg HS PO 10/06/24 21:00 11/05/24 20:59 Clopidogrel Bisulfate (plaVIX 75MG) 75 mg DAILY PO 10/07/24 09:00 11/06/24 08:59 Diphenhydramine HCl (BENAdryl CAP) 25 mg HS PRN PO SLEEP 10/06/24 21:00 11/05/24 20:59 Gabapentin (NEURontin 100 mg CAP) 100 mg TID PO 10/06/24 21:00 11/05/24 20:59 Home Med (Home Medication) (Fenofibrate 80 MG) HS PO 10/06/24 21:00 11/05/24 20:59 Home Med (Home Medication) (Mirabegron (Myrbetriq) 25 MG) DAILY PO 10/07/24 09:00 11/06/24 08:59 Hydralazine HCl (APRESOLine 20MG INJ) 10 mg Q6H PRN IV ADMINISTER FOR SBP > 170 10/06/24 15:00 11/05/24 14:59 Levothyroxine Sodium (SYNTHroid 75MCG TAB) 75 mcg SYN PO 10/07/24 06:30 11/06/24 06:29 Losartan Potassium (CozAAR 50 mg TAB) 50 mg HS PO 10/06/24 21:00 11/05/24 20:59 Magnesium Sulfate 50 ml @ 0 mls/hr PROTOCOL IV 10/06/24 13:00 11/05/24 12:59 10/06/24 14:34 25 MLS/HR Miscellaneous Medication (Acetaminophen/ Diphenhydramine (Tylenol Pm Exstr 500-25Mg Cplt)) 1 each HS PO 10/06/24 21:00 11/05/24 20:59 UNV Nicardipine HCl 25 mg/Sodium Chloride 250 ml @ 0 mls/hr PROTOCOL IV 10/06/24 13:56 10/07/24 12:00 Nifedipine (adALAT 30MG) 30 mg Q24H PO 10/06/24 15:00 11/05/24 14:59 10/06/24 15:38 30 MG Nitroglycerin (Nitrostat) 0.4 mg AD PRN SL CHEST PAIN 10/06/24 15:00 11/05/24 14:59 Pantoprazole Sodium (PROTonix 40MG TAB) 40 mg ACBKFST PO 10/07/24 07:30 11/06/24 07:29 Sucralfate (Carafate) 1 gm Q6H PO 10/06/24 15:30 11/05/24 15:29 10/06/24 15:38 1 GM Tamsulosin HCl (FloMAX) 0.4 mg HS PO 10/06/24 21:00 11/05/24 20:59 Vitamin B Complex/ Vit C/Folic Acid (Nephrovite Tablet) 1 cap DAILYLUNCH PO 10/07/24 12:00 11/06/24 11:59 DIAGNOSTICS / RADIOLOGY: SERVICE 1134 REASON: SHORTNESS A BREATH ORDERING PHYSICIAN: LISSY SÁNCHEZ NP PROCEDURE: CXR1VW - CHEST 1VW PORTABLE CHEST RADIOGRAPH INDICATION: SHORTNESS A BREATH COMPARISON: 02/08/2024 FINDINGS: z os mainframe systems programmer leads overlie the field of view. Heart size is normal. Mild calcific plaque is present along the aortic arch riggins. The pulmonary vascularity and marco appear normal. No abnormal pulmonary parenchymal opacity or consolidation identified. Linear scarring at both lung bases. No significant pleural effusion noted. No pneumothorax detected. IMPRESSION: No radiographic evidence for any acute cardiopulmonary process. DICTATED BY: JAGDISH FERNÁNDEZ MD DATE: 10/06/241219 ELECTRONICALLY SIGNED BY: JAGDISH FERNÁNDEZ MD DATE: 10/06/241222 SERVICE 1443 REASON: headache, HTN Urgency ORDERING PHYSICIAN: JOANNE ALFRED MD PROCEDURE: HEAD WO - CT HEAD/BRAIN W/O CONTRAST CT HEAD/BRAIN W/O CONTRAST CLINICAL HISTORY: headache, HTN Urgency COMPARISON: None TECHNIQUE: Multiple sequential axial images of the head were obtained from the base of the skull through vertex. CT was performed with one or more of the following dose reduction techniques: automated exposure control, adjustment of the mA and/or kV according to patient size, or use of iterative reconstruction technique FINDINGS: There is mild atrophy and small vessel disease. The orbital contents, paranasal sinuses and mastoid air cells are within normal limits. The calvarium is intact. IMPRESSION: There are no acute findings. DICTATED BY: GALDINO HE DO DATE: 10/06/24 161 ELECTRONICALLY SIGNED BY: GALDINO HE DO DATE: 10/06/241617 ASSESSMENT: Hypertensive emergency, POA Type 2 CO, POA Recent history of AFib ablation on 10/01/2024, POA History of coronary artery disease with history of PCI in 2018, POA Acute headache, resolving, likely secondary to hypertensive emergency Anemia with macrocytosis, POA History of hypertension, POA Hyperlipidemia, POA CKD stage 3, POA GERD, POA Prior history of tobacco use, POA History of abdominal aortic aneurysm (4.4 cm), POA History of basal cell carcinoma, POA PLAN: Patient will be admitted to cardiac telemetry floor Patient currently presenting with hypertensive emergency with headache and elevated troponin, patient received two doses of IV hydralazine with improvement of systolic blood pressure We will start patient on nifedipine ER 30 mg daily, and discussed with pharmacy, we will substitute losartan 50 mg at bedtime for olmesartan 20 mg daily, we will see how blood pressure trends in the next 24-48 hours and antihypertensives can be up titrate based on blood pressure trend We will obtain a 2D echocardiogram to assess LVEF All home medications will be resumed including Eliquis, Plavix, amiodarone in rest of the home medications All labs will be repeated in the morning Magnesium will be repleted per protocol Appreciate recommendations by Cardiology on this case Headache and shortness of breath has mostly resolved after blood pressure has trended down, we will continue to monitor, CT head without contrast showed no significant intracranial findings DVT prophylaxis with Eliquis and patient will continue with GI prophylaxis with Protonix and Carafate in lieu of recent cardiac ablation Due to macrocytosis, we will check Vitamin B12, folic acid, TSH and patient will benefit from outpatient hematology evaluation Date of service: 10/06/2024 Plan of care was discussed with patient and at bedside, Joanne Alfred MD Advanced Care Planning: Which of the following were discussed: Hospice care: Yes __ No _X_ Therapeutic options: Yes _X_ No __ Advance directives: Yes _X_ No __ Other discussions: Discussed with who?: Patient Voluntary nature of this service was explained to the patient? Yes _x_ No __ Amount of time spent: 20 minutes JOANNE ALFRED MD Oct 06, 2024 19:14
[2024-10-06 20:00] VITALS: O2SAT 96
[2024-10-06 20:30] VITALS: BP 174/87; PULSE 65; RESP 18; TEMP 98
[2024-10-06] MEDS: AMIOdarone 200 MG TABLET PO SCH (20:35)
[2024-10-06] MEDS: LoSARTan 50 MG TABLET PO SCH (20:35)
[2024-10-06] MEDS: atorVAStatin 40 MG TABLET PO SCH (20:35)
[2024-10-06] MEDS: GABApentin 100 MG CAPSULE PO SCH (20:35)
[2024-10-06] MEDS: alloPURInol 100 MG TABLET PO SCH (20:36)
[2024-10-06] MEDS: APIXaban 5 MG TABLET PO SCH (20:36)
[2024-10-06] MEDS: tamSULOsin HCL 0.4 MG CAP.ER.24H PO SCH (20:36)
[2024-10-06] MEDS ORDERED: ACETAMINOPHEN PO SCH (21:00)
[2024-10-06] MEDS: FENOFIBRATE PO SCH (21:00)
[2024-10-06] MEDS ORDERED: [UNRECOGNIZED DRUG - OTHER] PO SCH (21:00)
[2024-10-06] MEDS ORDERED: DiphenhydrAMINE HCL 25 MG CAPSULE PO PRN (21:00)
[2024-10-06] MEDS ORDERED: DIPHENHYDRAMINE PO SCH (21:00)
[2024-10-07 00:19] VITALS: BP 142/67; PULSE 62; RESP 18; TEMP 98.1
[2024-10-07 04:30] VITALS: BP 132/59; PULSE 62; RESP 18; TEMP 98.2
[2024-10-07] MEDS: levoTHYROxine 75 MCG TABLET PO SCH (05:39)
--- NOTE | 2024-10-07 07:21 | PN ---
PROBLEM LIST: * Hypertensive urgency. * Type 2 supply demand mismatch myocardial infarction in the setting of poorly controlled hypertension with decreasing troponin levels. * History of paroxysmal atrial fibrillation with ablation for atrial fibrillation, 10/01/2024. * Severe coronary artery disease with remote PCI with drug-eluting stent x 2 to the left circumflex and balloon angioplasty of the OM done in 03/2018. * LVEF of 55% by echocardiography in 07/2023. * Hyperlipoproteinemia. * Gout. * Persistent tobacco abuse, counseled extensively. * Abdominal aortic aneurysm, which measurement of 4.4 cm, on 08/26/2024. 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 This gentleman has been hospitalized predominantly because of poorly controlled hypertension with accompanying headaches. He has been evaluated and assessed with a CAT scan of the head that showed no acute injury. The patient was hospitalized, and nifedipine has been started wtih some improvement in his blood pressure measurements. On assessing the patient this morning, he states that he feels well. He is not having any symptoms of headache or chest discomfort. He denies any shortness of breath. He has had no palpitations and no other complaints. The patient's telemetry has revealed a stable rhythm with no significant ectopy or pauses. The patient's vital signs revealed blood pressure in the 135-145 systolic range. It has come down from 175 yesterday. The patient is afebrile. His heart rate is in the mid 60s. He is saturating at 93-94% on room air. Exam today is remarkable for a comfortable patient. There is no jugular venous distention. There are carotid bruits versus transmitted sounds from the aortic region. The cardiac exam is remarkable for normal S1 and a markedly diminished S2. The patient has a 2/6 apical and left lower sternal border systolic murmur that extends into the aortic region and the base of the neck. I am unable to appreciate any diastolic murmurs, rubs, or gallops. The patient's heart sounds are distant. The lung exam is remarkable for prolonged expiratory phase. The patient has scattered rhonchi. The abdomen is distended, but soft. The patient has an umbilical hernia. I am unable to appreciate any abdominal pulsations. The extremities are without edema. The patient's laboratory studies yesterday have revealed a white count of 9.2. The patient's H and H is slightly low at 12.4 and 36.8 respectively. The MCV is high at 102.2 and the MCH is high at 34.4. The patient has had a normal platelet count of 249,000. The chemistries yesterday revealed a sodium of 143, a potassium of 4.1, chloride is 106, CO2 is 30, his BUN is 17, creatinine is 1.5 which is down from 1.8 on the . The patient's GFR is 47. His random glucose was 83. His hemoglobin A1c 6.3 with a low phosphorus of 2.3, which is being addressed by the primary care team. The patient's liver enzymes are essentially normal. His troponin I has been completely negative and the high sensitivity troponin shows borderline elevation at 140, down trending to 126. The patient's BNP was 205. The patient is currently maintained on Nephro-Alessandro, clopidogrel, Myrbetriq, pantoprazole, levothyroxine, Benadryl, Flomax, fenofibrate, apixaban, allopurinol, gabapentin, atorvastatin, amiodarone, losartan, sucralfate, nifedipine and additional p.r.n. medications. At this point, the patient appears to be improving from the blood pressure control standpoint. I have recommended that we continue the current supportive measures. He does have significant ; however, is not critical at this point. The patient will be given a higher dose of nifedipine. We will continue with the current dose of losartan because of the patient's renal dysfunction. His nifedipine will be increased from 30 daily to 30 b.i.d. I have also explained to the patient that he might have some pedal edema. TID: [id number] RECEIPT: [id number]
[2024-10-07 07:33] LABS: BASOPHILS # (AUTO) 0.06 K/uL (0.00-0.20); BASOPHILS % (AUTO) 0.5 % (0.0-5.0); EOSINOPHILS # (AUTO) 0.15 K/uL (0.00-0.70); EOSINOPHILS % (AUTO) 1.4 % (0.0-8.0); HEMATOCRIT 36.6 % (42-54); IMMATURE GRANULOCYTE ABSOLUTE 0.07 K/uL (0-1); MEAN CORPUSCULAR HEMOGLOBIN 34.8 pg (27.0-33.0); MEAN CORPUSCULAR HGB CONC 34.2 g/dL (32.0-36.0); MEAN CORPUSCULAR VOLUME 101.9 fL (79-99); MONOCYTES # (AUTO) 0.8 K/uL (0.1-1.0); MONOCYTES % (AUTO) 7.4 % (3.0-13.0); NEUTROPHILS # (AUTO) 8.9 K/uL (1.8-7.7); NEUTROPHILS % (AUTO) 81.1 % (40.0-77.0); PLATELET COUNT (AUTO) 219 K/uL (130-400); RED BLOOD CELL COUNT(AUTO) 3.59 MIL/uL (4.50-6.20)
[2024-10-07 08:00] VITALS: O2SAT 96
[2024-10-07 08:03] LABS: ALBUMIN 3.2 g/dL (3.5-5.0); BILIRUBIN,TOTAL 0.4 mg/dL (0.2-1.0); CREATININE 1.5 mg/dL (0.5-1.3); MAGNESIUM 1.8 mg/dL (1.80-2.40); POTASSIUM 3.6 mmol/L (3.5-5.1); TOTAL PROTEIN, SERUM 6.9 g/dL (6.0-8.3)
[2024-10-07 08:32] VITALS: BP 127/59; PULSE 63; RESP 16; TEMP 97.8
[2024-10-07] MEDS: PANTOPrazole 40 MG TAB DR PO SCH (08:46)
[2024-10-07] MEDS: cloPIDOgrel 75MG TAB PO SCH (08:46)
[2024-10-07] MEDS: nifeDIPine ER 30 MG TAB PO SCH (08:47)
[2024-10-07] MEDS: ***HM***(Mirabegron (Myrbetriq) 25 MG) PO SCH (08:53)
--- NOTE | 2024-10-07 09:49 | NUR ---
DCP: HOME Sw met with pt who lives in a condo with Mell De [phone]. Pt reports they have elevator in building. Pt uses a cane for outdoors. No HH or HD. Pt reports he is able to complete ADLS on his own, drives and remains active. PCP is Dr Coppola and uses [facility] for rx. Denies dc needs and will return home at [place] Addendum: 10/07/24 at 0952 by CARMELA WILKINS Amended: Links added.
[2024-10-07] MEDS ORDERED: NIFE-40 PO (10:05)
[2024-10-07] MEDS ORDERED: ALLO100T PO (10:05)
[2024-10-07] MEDS ORDERED: ATOR40TA69 PO (10:05)
[2024-10-07] MEDS ORDERED: CEFD300C3 PO (10:05)
--- NOTE | 2024-10-07 10:08 | DS ---
Discharge Summary Hospital Course Summary: Initially admitted to the hospital October 06, 2024 with the following history of the present illness: 79-year-old male with underlying history of hypertension, hyperlipidemia, co ronary artery disease with prior history of PCI in 2018, history of paroxysmal atrial fibrillation, CKD Stage III, with recent cardiac ablation done on 10/01/[address] Mir, history of chronic anticoagulation with Eliquis who presented to the ER for further evaluation of elevated blood pressure and shortness of breath. Patient stated that he has noted that his systolic blood pressures have been running high between 150s-170s. On presentation to the ER, patient was noted to have blood pressure fluctuating between 160s-190s systolic with heart rate in the 50s with normal sinus rhythm. Labs on presentation showed WBC count of 9200, hemoglobin 12.4, platelet count of 307472, MCV of 102. CMP remarkable for sodium of 143, potassium 4.1, chloride of 106, BUN of 17, creatinine 1.5. Cardiac panel was noted to be elevated with high sensitivity troponin of 140. Patient denied having active chest pain. The patient was admitted to the progressive care unit, kept on telemetry monitoring, no evidence of arrhythmias. Cardiology consultation requested, losartan 50 mg p.o. at bedtime was started in substitution of olmesartan 20 mg p.o. at bedtime than he takes at home, the patient was started on antihypertensive with nifedipine ER 30 mg p.o. daily. Today the patient is alert oriented x3, hemodynamically stable, nifedipine switched to 30 mg p.o. b.i.d. per Cardiology recommendations, okay for the patient to be discharged home and follow up as an outpatient. Spring Winder(s): Cardiology Assessment/Plan: Final diagnosis Hypertensive emergency, POA Type 2 [place], POA Recent history of AFib ablation on 10/21/2011 024, POA History of coronary artery disease with history of PCI in 2018, POA Acute headache, resolving, likely secondary to hypertensive emergency Anemia with macrocytosis, POA History of hypertension, POA Hyperlipidemia, POA CKD stage 3, POA GERD, POA Prior history of tobacco use, POA History of abdominal aortic aneurysm (4.4 cm), POA History of basal cell carcinoma, POA Discharge Instructions: The patient to follow up with Cardiology as an outpatient and to return to the hospital if his condition changes. Patient agreed with plan and understood the information provided. Home Medications: Active Scripts Sucralfate (Carafate) 1 Gram Tablet, 1 TAB PO QID for 7 Days, #56 TAB 0 Refills Prov:RAIN NO MD 10/01/24 Pantoprazole Sodium (Protonix) 40 Mg Ectab, 1 TAB PO DAILY for 14 Days, #14 TAB 0 Refills Prov:RAIN NO MD 10/01/24 Reported Medications Rosuvastatin Calcium (Rosuvastatin Calcium) 20 Mg Tablet, 20 MG PO HS, TAB 10/06/24 Levothyroxine Sodium (Levothyroxine) 75 Mcg Capsule, 1 TAB PO DAILY for 30 Days, #30 CAP 0 Refills 09/27/24 Acetaminophen (Tylenol Extra Strength) 500 Mg Tablet, 2 TAB PO AD PRN for pain or fever for 7 Days, #56 TAB 0 Refills 09/27/24 Tamsulosin HCl (Flomax) 0.4 Mg Cap.er.24h, 0.4 MG PO HS, CAPSULE.DR 09/27/24 Amiodarone HCl (Amiodarone HCl) 200 Mg Tablet, 200 MG PO BID, TAB 09/27/24 Olmesartan Medoxomil (Olmesartan Medoxomil) 20 Mg Tablet, 20 MG PO HS, TAB 09/27/24 Acetaminophen/Diphenhydramine (Tylenol Pm Exstr 500-25Mg Cplt) 500 Mg-25 Mg Tablet, 1 EACH PO HS, TAB 11/28/23 Gabapentin (Gabapentin) 100 Mg Capsule, 100 MG PO TID, CAP 11/28/23 Clopidogrel Bisulfate (Clopidogrel) 75 Mg Tablet, 75 MG PO DAILY, TAB 11/28/23 Discontinued Reported Medications Fenofibrate (Fenofibrate) 160 Mg Tablet, 80 MG PO HS, TAB 10/11/23 Allopurinol (Allopurinol) 100 Mg Tablet, 100 MG PO BID, TAB 10/11/23 Folic Acid/Vitamin B Comp W-C (Latosha-Alessandro Tablet) 0.8 Mg Tablet, 0.8 MG PO DAILYLUNCH, TAB 10/11/23 Mirabegron (Myrbetriq) 25 Mg Tab.er.24h, 25 MG PO DAILY, TAB 10/11/23 Nitroglycerin (Nitroglycerin) 0.4 Mg Tab.subl, 0.4 MG SL Q5MINS PRN for CHEST PAIN, TAB.SL 09/04/23 Apixaban (Eliquis) 5 Mg Tablet, 5 MG PO BID, TAB 03/29/18 Rosuvastatin Calcium (Rosuvastatin Calcium) 10 Mg Tablet, 10 MG PO HS, TAB 10/11/23 Discontinued Scripts Meclizine HCl (Meclizine HCl) 12.5 Mg Tablet, 12.5 MG PO TID for VERTIGO, #20 TAB Prov:ANDRY MOJICA MD 02/08/24 Time spent arranging discharge: 31-60 minutes ISAC STEPHENS MD Oct 07, 2024 10:08
[2024-10-07 11:29] LABS: APPEARANCE,URINE CLEAR (CLEAR); BILIRUBIN,URINE NEGATIVE (NEGATIVE); COLOR,URINE YELLOW (YELLOW); GLUCOSE, URINE (UA) NEGATIVE (NEGATIVE); KETONES,URINE 5 mg/dL (NEGATIVE); LEUKOCYTE ESTERASE ,URINE NEGATIVE Leu/uL (NEGATIVE); NITRATE,URINE NEGATIVE (NEGATIVE); PROTEIN,URINE 30 mg/dL (NEGATIVE); UROBILINOGEN,URINE 0.2 mg/dL (0.2-1.0)
--- NOTE | 2024-10-07 11:35 | NUR ---
PATIENT D/C TO VEHICLE WITH . ALL DC INSTRUCTIONS REVIEWED ALL QUESTIONS ANSWERED ALL IV'S DC
[2024-10-07 11:54] LABS: MUCUS,URINE RARE LPF (None Seen); WBC,URINE 0-1 /HPF (0-1)
[2024-10-07] MEDS ORDERED: Vitamin B Complex/Vit C/Folic Acid PO SCH (12:00)
--- NOTE | 2024-10-07 19:18 | HMCSR ---
APPROVED REPORT EXAM: LIMITED Two-dimensional and M-mode echocardiogram with Doppler and color Doppler. INDICATION ICD: Assess LVEF, elevated troponin 2D Dimensions IVSd1.6 (0.7-1.1cm)LVEF(%)48.9 (>50%)LVED Vol(simp.)125.0 mL LVDd4.1 (3.8-5.6cm)FS(%)24 %LVES Vol(simp.)42.0 mL PWd1.8 (0.7-1.1cm)LVEF(%, simp.)66 % LVDs3.1 (2.5-4.0cm) PWs2.1 cm Left Ventricle Left ventricular cavity size is normal. There is normal LV segmental wall motion. Wall motion is norm al in views obtained Moderate concentric left ventricular hypertrophy. LVEF is 65-70%. Aortic Valve The aortic valve is moderately calcified with reduced cusp excursion noted Peak gradients were not as sessed on this evaluation Clinical correlation recommended Conclusion LVEF is 65-70%. There is normal LV segmental wall motion. Wall motion is normal in views obtained Moderate concentric left ventricular hypertrophy. The aortic valve is moderately calcified with reduced cusp excursion noted Peak gradients were not assessed on this evaluation Clinical correlation recommended
== END 2024-10-07 11:35 | disposition home or self-care (01) ==
LOC: EDH 11:30 → EDHIP 14:44 → INTOOBSV 14:44 → 2AH 16:20
PROVIDERS: ADMIT Internal Medicine; ATTEND Internal Medicine
DX: I16.1 Hypertensive emergency (principal); Z20.822 Contact with and (suspected) exposure to COVID-19; I21.A1 Myocardial infarction type 2; I48.0 Paroxysmal atrial fibrillation; I25.10 Atherosclerotic heart disease of native coronary artery without angina pectoris; D75.89 Other specified diseases of blood and blood-forming organs; I12.9 Hypertensive chronic kidney disease with stage 1 through stage 4 chronic kidney disease, or unspecified chronic kidney disease; N18.30 Chronic kidney disease, stage 3 unspecified; D63.1 Anemia in chronic kidney disease; E03.9 Hypothyroidism, unspecified; E78.00 Pure hypercholesterolemia, unspecified; E83.42 Hypomagnesemia; E86.0 Dehydration; I71.40 Abdominal aortic aneurysm, without rupture, unspecified; M19.90 Unspecified osteoarthritis, unspecified site; K21.9 Gastro-esophageal reflux disease without esophagitis; K42.9 Umbilical hernia without obstruction or gangrene; M10.9 Gout, unspecified; I70.8 Atherosclerosis of other arteries; I65.22 Occlusion and stenosis of left carotid artery; N40.0 Benign prostatic hyperplasia without lower urinary tract symptoms; F17.200 Nicotine dependence, unspecified, uncomplicated; Z79.01 Long term (current) use of anticoagulants; Z79.899 Other long term (current) drug therapy; Z85.820 Personal history of malignant melanoma of skin; Z85.828 Personal history of other malignant neoplasm of skin; Z86.79 Personal history of other diseases of the circulatory system; Z87.440 Personal history of urinary (tract) infections; Z90.49 Acquired absence of other specified parts of digestive tract
CPT/HCPCS: 84443; 80076; 83735 ×3; 84484 ×2; 80048; 83880; 85025 ×2; 85610; 85730; 82607; 82746; 87426; 36415 ×2; 71045; 70450; 96365; 99291; 96375; 96376; 93005 ×2; 80053; 81001; 93308; 97161; 97116; J3475; J0360 ×2; J3490; J7050; G0378 ×3

== ENCOUNTER → 2024-10-15 | Outpatient (CLI) | payer OTHER, MEDICARE ==
[~2024-10-15] MED LIST changes: -APIX5TAB PO; +ATOR40TA69 PO; +CEFD300C3 PO; -FENO160T16 PO; -FOLI0.8T22 PO; -MECL-226 PO; -MIRA25TA PO; +NIFE-40 PO; -NITR0.4T50 SL; -ROSU10TA72 PO
[2024-10-15 12:11] LABS: CREATININE 1.6 mg/dL (0.5-1.3); POTASSIUM 4.1 mmol/L (3.5-5.1)
== END | disposition home or self-care (01) ==
LOC: LAB 08:17
PROVIDERS: ATTEND Internal Medicine Cardiovascular Disease
DX: I71.40 Abdominal aortic aneurysm, without rupture, unspecified (principal)
CPT/HCPCS: 36415; 80048

== ENCOUNTER → 2024-11-28 | Outpatient (CLI) | payer OTHER, MEDICARE ==
[~2024-11-28] MED LIST changes: +APIX5TAB PO; -ATOR40TA69 PO; +CLOP-31 PO; -CLOP75TA32 PO; +FENO40TA4 PO; +FOLI0.8T22 PO; +LACT1CAP58 PO; +METR-172 PO; +MIRA25TA PO; -NIFE-40 PO; -PANT40TA55 PO; +ROSU40 PO; +SUCR1TAB2 PO; -SUCR1TAB28 PO
[2024-11-28 12:38] LABS: CREATININE 1.6 mg/dL (0.5-1.3); POTASSIUM 5.1 mmol/L (3.5-5.1)
== END | disposition home or self-care (01) ==
LOC: LAB 10:11
PROVIDERS: ATTEND Internal Medicine Cardiovascular Disease
DX: I71.40 Abdominal aortic aneurysm, without rupture, unspecified (principal)
CPT/HCPCS: 36415; 80048

== ENCOUNTER → 2024-12-05 | Outpatient (CLI) | payer OTHER, MEDICARE ==
[~2024-12-05] MED LIST changes: +IOHEXOL 350 MG/ML 100ML INFUS..BTL IV ONE
--- NOTE | 2024-12-05 12:23 | HMCIMG ---
CT ANGIO ABD/PEL PRE AAA 3MM REASON: ABDOMINAL AORTIC ANEURYSM WITHOUT RUPTURE COMPARISON: 01/17/2021. TECHNIQUE: Images are obtained from lung bases through the symphysis pubis before, during and after bolus IV contrast infusion. 2-D multiplanar reconstruction images were then performed. Contrast volume was 100 cc Omnipaque [id number]. FINDINGS: Images demonstrate an infrarenal abdominal aortic aneurysm measuring 3.6 x 3.7 cm. The aneurysm measures approximately 4.7 cm in length, the distal abdominal aorta is mildly ectatic but not aneurysmal renal and mesenteric artery origins are widely patent. Common and external iliac arteries appear preserved as are the common femoral arteries. Lung bases are clear. There are no focal liver lesions. There are small cysts left kidney, kidneys appear otherwise normal with no mass, stone or hydronephrosis.. Spleen and pancreas appear unremarkable. The gallbladder appears normal as well. Bowel loops appear unremarkable. The appendix was not separately identified. There is no evidence of free fluid or intraperitoneal air. There are no focal fluid collections. Aorta and retroperitoneum appear normal as do pelvic soft tissue structures. The anterior abdominal wall is intact. Osseous structures appear unremarkable. IMPRESSION: 1. 3.6 x 3.7 cm infrarenal abdominal aortic aneurysm, no mural thrombus, no evidence of dissection. 2. The exam has shown only minimal change since prior study 01/17/2021 at which time it measured 3.5 x 3.5 cm. 3. Otherwise unremarkable CT abdomen and pelvis with CT angiogram technique. CT was performed with one or more following dose reduction techniques: automated exposure control, adjustment of the mA and kv according to patient's size, or use of a iterative reconstruction technique.
== END | disposition home or self-care (01) ==
LOC: RAH 09:14
PROVIDERS: ATTEND Internal Medicine Cardiovascular Disease
DX: I71.43 Infrarenal abdominal aortic aneurysm, without rupture (principal); N28.1 Cyst of kidney, acquired; I71.40 Abdominal aortic aneurysm, without rupture, unspecified
CPT/HCPCS: 74174; Q9967

== ENCOUNTER 2025-06-26 08:37 | Day surgery (SDC) | payer OTHER ==
--- NOTE | 2025-06-24 10:53 | EKG ---
[facility] Test Date: 2025-06-24 Test Time: 10:43:14 Pat Name: VALENTINO EASTON Department: ON LICENSE OF [facility] Room: Gender: M Occupational Therapy Department Chair: [id number] : 1945 Requested By: DIANA HUFFMAN Order Number: [id number] Reading MD: Librado Hull Measurements Intervals [place] Rate: 86 P: 0 PA: 0 QRS: 44 QRSD: 99 T: 38 QT: 400 QTc: 448 Interpretive Statements Atrial flutter Ventricular premature complex Compared to ECG 05/25/2025 15:06:35 Ventricular premature complex(es) now present Electronically Signed On 06-24-2025 15:03:48 CDT by Librado Hull Please click the below link to view image of tracing.
[2025-06-24 11:02] VITALS: BP 122/68; PULSE 86; RESP 17; TEMP 97.6
[2025-06-24 11:16] LABS: CREATININE 1.6 mg/dL (0.5-1.3); GLOMERULAR FILTR. RATE CALC 43.0 mL/min (>90); GLUCOSE,RANDOM 108.0 mg/dL (70-105); SODIUM SERUM 144.0 mmol/L (136-145); UREA NITROGEN, BLOOD 23.0 mg/dL (7-18)
[2025-06-24 11:17] LABS: IMMATURE GRANULOCYTE ABSOLUTE 0.08 K/uL (0-1); NUCLEATED RED BLOOD CELLS 0.0 % (0.0-0.19); PLATELET COUNT (AUTO) 253 K/uL (130-400); RED BLOOD CELL COUNT(AUTO) 3.78 MIL/uL (4.50-6.20); RED CELL DISTRIBUTION WIDTH 15.5 % (11.0-15.5); WHITE BLOOD COUNT (AUTO) 9.3 K/uL (4.8-10.8)
[2025-06-24 11:32] LABS: INR 1.08 (0.85-1.15)
[~2025-06-26] VITALS: Ht 180.3 cm; Wt 89.4 kg
[~2025-06-26 08:37] MED LIST changes: -ACET-2743 PO; -ACET-3540 PO; -AMIO200T68 PO; -CEFD300C3 PO; +CHOL200074 PO; -CLOP-31 PO; +CLOP75TA32 PO; -FENO40TA4 PO; +FENO48TA10 PO; +FERR-72 PO; -FOLI0.8T22 PO; +FOLI1TAB85 PO; -IOHEXOL 350 MG/ML 100ML INFUS..BTL IV ONE; -LACT1CAP58 PO; +LEVO100T12 PO; -LEVO75CA5 PO; +MECL-226 PO; +MELO-106 PO; -METR-172 PO; -MIRA25TA PO; +MULT-298 PO; +NITR0.4T50 SL; -OLME20TA68 PO; +PANT40TA54 PO; +PHEN95TA23 PO; +PIND5TAB8 PO; +ROSU10TA72 PO; -ROSU40 PO; -SUCR1TAB2 PO; -TAMS-1 PO; +TAMS-55 PO
[2025-06-26 09:01] VITALS: BP 159/98; PULSE 91; RESP 16; TEMP 97.6
[2025-06-26] MEDS: 0.9%NACL 1000ML 1,000 ML IV ONE (09:11)
--- NOTE | 2025-06-26 13:15 | NUR ---
PROCEDURE CANCELLED DR. HUFFMAN IN TO SPEAK WITH PATIENT REGARDING PROCEDURE CANCELLATION DUE TO TROUBLE WITH EQUIPMENT
== END 2025-06-26 13:15 | disposition home or self-care (01) ==
LOC: DAH 08:37
PROVIDERS: ATTEND Internal Medicine Cardiovascular Disease
DX: I48.4 Atypical atrial flutter (principal); E78.5 Hyperlipidemia, unspecified; M10.9 Gout, unspecified; F17.210 Nicotine dependence, cigarettes, uncomplicated; G47.33 Obstructive sleep apnea (adult) (pediatric); I49.3 Ventricular premature depolarization; I12.9 Hypertensive chronic kidney disease with stage 1 through stage 4 chronic kidney disease, or unspecified chronic kidney disease; N18.30 Chronic kidney disease, stage 3 unspecified; Z98.890 Other specified postprocedural states; Z99.89 Dependence on other enabling machines and devices; Z95.5 Presence of coronary angioplasty implant and graft; Z85.820 Personal history of malignant melanoma of skin; Z79.01 Long term (current) use of anticoagulants; Z79.899 Other long term (current) drug therapy; Z53.8 Procedure and treatment not carried out for other reasons
CPT/HCPCS: 93005; 80048; 85025; 85610; 85730; 36415; J7030; A4215; A4222; A4221; A4663; A4216; A4606; A4223 ×3

== ENCOUNTER → 2025-09-11 | Outpatient (CLI) | payer OTHER ==
[~2025-09-11] MED LIST changes: -ROSU10TA72 PO; +ROSU10TA98 PO
[2025-09-11] MEDS: REGADENOSON 0.4 MG/5 ML PF SYG IVP ONE (12:35)
== END | disposition home or self-care (01) ==
LOC: CANPRECLI → RAH 10:31
PROVIDERS: ATTEND Internal Medicine Cardiovascular Disease
DX: I48.91 Unspecified atrial fibrillation (principal); I48.92 Unspecified atrial flutter; R06.00 Dyspnea, unspecified; R07.9 Chest pain, unspecified
CPT/HCPCS: 78452; 93017; J2785; A9500 ×2